=== PATIENT | male | born 1960 | race Caucasian/White ===

== ENCOUNTER → 2023-08-20 07:50 | Outpatient (REF) | payer BC, SELFPAY ==
--- NOTE | 2023-08-20 08:04 | CA_ITS ---
Acquisition Time: 2023-08-20 08:16:27 Total Exercise Time: 00:06:16 Test Indications: CP Medications: SEE H Protocol: KRISTAN Max HR: 157 BPM 100% of Pred: 157 BPM Max BP: 190/084 mmHG Max Work Load: 7.4 METS Exercise stress test exercise 6 min 16 sec of Kristan protocol achieving 101% MPHR, with mild SOB, no chest discomfort, without arrhythmias, with resting BP 124/82, max BP 190/84, with baseline abnormilities with no changes. Test reviewed with Dr. Ruth. Recommend echocardiogram and nuclear stress test. Referred By: WEST GALAN Overread By: Shawna Mckeon
== END ==
LOC: HO.CARD 07:50
PROVIDERS: Visit Provider Family Medicine
DX: R07.89 Other chest pain (principal)
CPT/HCPCS: 93017

== ENCOUNTER → 2023-08-20 08:04 | Outpatient (BNV) | payer BC, SELFPAY | PROVIDERS: Visit Provider Nurse Practitioner | DX: R06.02 Shortness of breath (principal); R07.89 Other chest pain | CPT/HCPCS: 93016; 93018 ==

== ENCOUNTER → 2023-09-16 07:56 | Outpatient (REF) | payer BC, SELFPAY ==
--- NOTE | 2023-09-16 08:02 | CA_ITS ---
Transthoracic Echocardiogram Patient (Last, First, Middle): Waldo Villagomez K Gender: Male Date of : 1960 Age: 63 Procedure Date: 09/16/2023 Procedure Type: Transthoracic Echocardiogram Location: OP Height: 187. cm Weight: 104.33 kg BSA: 2.30 m2 Heart Rate: 79 bpm BP: 155 / 90 mmHg Internal Controls Manager: ERNESTO Referring MD: Georges Thompson Symptoms: ABNORMAL OTHER CV TEST R94.39 Study Quality: Fair/w Contrast ECG Rhythm: Sinus Conclusions: - The left ventricular systolic function is normal. The visually estimated ejection fraction is between 65-70%. - No obvious valvular pathology seen on this study. Findings Procedure Information Contrast agent, definity, is being given per protocol without apparent complications. Left Ventricle Normal left ventricular cavity size. There is mildly increased left ventricular wall thickness. The left ventricular systolic function is normal. The visually estimated ejection fraction is between 65-70%. There is no evidence of regional wall motion abnormalities. Diastolic function is normal for age. Right Ventricle Normal right ventricular cavity size and systolic function. Atria Both atria are normal in size. Aortic Valve There is a normal trileaflet aortic valve. There is mild calcification of the aortic valve. There is no aortic valve stenosis. There is no aortic valve regurgitation. Mitral Valve The mitral valve appears normal. There is no mitral valve regurgitation. There is no mitral valve stenosis. Pulmonic Valve The pulmonic valve is likely normal. Tricuspid Valve Normal tricuspid valve structure. There is trace tricuspid valve regurgitation. There is no evidence of pulmonary hypertension. Great Vessels The asc aorta is normal in size. Venous The inferior vena cava is normal in size and collapses greater than 50% with inspiration. Pericardium/Pleural There is no evidence of pericardial effusion. Prior Study Comparison No prior study available for comparison. Recommendations, Care & Conclusions No obvious valvular pathology seen on this study. Measurements 2D Linear Measurements IVSd: 0.93 0.6-0.9/0.6-1.0 cm LVIDd: 4.04 3.9-5.3/4.2-5.9 cm LVIDd Index: 1.76 2.4-3.2/2.2-3.1 cm/m2 LVIDs: 2.20 2.0-3.6 cm LVPWd: 0.98 0.7-1.1 cm LA Diam: 3.40 2.7-3.8/3.0-4.0 cm LAIDs Index: 1.48 1.5-2.3 cm/m2 LV Mass: 150.27 67-162/88-224 g LV Mass Index: 65.34 43-95/49-115 g/m2 LVOT Diam: 2.20 3.0+(-)1.3 cm 2D Systolic Function EF 4C: 71.80 >55% EF 2C: 68.90 >55% EF BiP: 70.50 >55% Mitral Valve MV Pk E: 0.62 MV PK A: 0.65 MV Decel Time: 184.00 E/A: 1.00 E'Lateral: 9.57 E'Medial: 6.74 E/E' Med: 9.20 E/E' Lat: 6.50 PHT: 54.00 MVA PHT: 4.07 Decel [place]: 3.38 Aortic Valve AoV Pk Jacky: 1.43 AoV Mn Jacky: 1.02 AoV VTI: 0.27 AoV Pk Grad: 8.00 Aov Mn Grad: 5.00 JAIDEN Cont.VTI: 3.40 LVOT LVOT Pk Jacky: 1.31 LVOT Mn Jacky: 0.81 LVOT VTI: 0.24 LVOT Pk Grad: 7.00 LVOT Mn Grad: 3.00 LVOT Diam: 2.20 LVOT Area: 3.80 Diastolic Function MV Pk E: 0.62 MV Pk A: 0.65 E/A: 1.00 E'Medial: 6.74 E/E' Med: 9.20 E' Laterial: 9.57 E/E' Lat: 6.50 Right Ventricle TAPSE (mm): 22.00 TVS' Jacky: 11.30 Tricuspid Valve TR Pk Jacky: 1.23 TR Pk Grad: 6.00 RA Press: 3.00 RVSP: 9.00 Great Vessels Aorta Sinus of Valsalva: 3.30 2.0-3.5 cm Ao Asc: 2.90 2.1-3.4 cm Pulmonary Valve PV Pk Jacky: 1.14 Peak PV Grad: 5.00 Updated in Other Vendor System with Status of Final Dm Ruth MD electronically signed on 09/16/2023 11:59:55 AM with status of Final
== END ==
LOC: HO.CARD 07:56
PROVIDERS: Visit Provider Family Medicine
DX: R94.39 Abnormal result of other cardiovascular function study (principal)
CPT/HCPCS: 93306; Q9957

== ENCOUNTER → 2023-09-16 08:02 | Outpatient (BNV) | payer BC, SELFPAY | PROVIDERS: Visit Provider Internal Medicine | DX: R94.39 Abnormal result of other cardiovascular function study (principal); I35.8 Other nonrheumatic aortic valve disorders | CPT/HCPCS: 93306 ==

== ENCOUNTER 2024-07-08 08:50 | Outpatient (AMB) | payer BC, SELFPAY ==
--- NOTE | 2024-07-08 09:11 | A.OFFVIS_ITS ---
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 Accompanied by: Self / Same As Patient Results AMB Urinalysis, Automated UA Leukoctes 0 Fifi/uL Last Edit by Gbarielle Hughes CMA on 07/08/24 09:14 UA Nitrite Negative Last Edit by Gabrielle Hughes, HERBERT on 07/08/24 09:14 UA Urobilinogen 0.2 mg/dL Last Edit by Gabrielle Hughes, HERBERT on 07/08/24 09:1 4 UA Protein 0 mg/dL Last Edit by Gabrielle Hughes, LABOR RELATIONS SUPERVISOR on 07/08/24 09:14 UA pH 6.0 Last Edit by Gabrielle Hughes, LABOR RELATIONS SUPERVISOR on 07/08/24 09:14 UA Blood 0 Eric/uL Last Edit by Gabrielle Hughes, HERBERT on 07/08/24 09:14 UA Specific [place] 1.015 Last Edit by Gabrielle Hughes, HERBERT on 07/08/24 09: 14 UA Ketone Negative Last Edit by Gabrielle Hughes, HERBERT on 07/08/24 09:14 UA Bilirubin 0 mg/dL Last Edit by Gabrielle Hughes, LABOR RELATIONS SUPERVISOR on 07/08/24 09:14 UA Glucose 0 mg/dL Last Edit by Gabrielle Hughes, HERBERT on 07/08/24 09:14 Assessment & Plan Assessment & Plan Orders: Orders AMB Urinalysis Automated Today Z13.9 - Encounter for screening, unspecified Coding
--- NOTE | 2024-07-08 09:11 | MHC.OFFVIS ---
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 Accompanied by: Self / Same As Patient Results AMB Urinalysis, Automated UA Leukoctes 0 Fifi/uL Last Edit by Gabrielle Hughes, HERBERT on 07/08/24 09:14 UA Nitrite Negative Last Edit by Gabrielle Hughes, HEAD STOCK TRANSFER CLERK on 07/08/24 09:14 UA Urobilinogen 0.2 mg/dL Last Edit by Gabrielle Hughes, HERBERT on 07/08/24 09:14 UA Protein 0 mg/dL Last Edit by Gabrielle Hughes, HEAD STOCK TRANSFER CLERK on 07/08/24 09:14 UA pH 6.0 Last Edit by Gabrielle Hughes, HEAD STOCK TRANSFER CLERK on 07/08/24 09:14 UA Blood 0 Eric/uL Last Edit by Gabrielle Hughes, HEAD STOCK TRANSFER CLERK on 07/08/24 09:14 UA Specific [place] 1.015 Last Edit by Gabrielle Hughes, HERBERT on 07/08/24 09:14 UA Ketone Negative Last Edit by Gabrielle Hughes, HERBERT on 07/08/24 09:14 UA Bilirubin 0 mg/dL Last Edit by Gabrielle Hughes, HEAD STOCK TRANSFER CLERK on 07/08/24 09:14 UA Glucose 0 mg/dL Last Edit by Gabrielle Hughes, HEAD STOCK TRANSFER CLERK on 07/08/24 09:14 Assessment & Plan Assessment & Plan Orders: Orders AMB Urinalysis Automated Today Z13.9 - Encounter for screening, unspecified Coding
--- NOTE | 2024-07-08 09:14 | A.OFFVIS_ITS ---
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 pain Intake Note: New patient is present to establish care for Testicular pain Any Urology Medications: Sildenafil Antibiotic Allergy: None Blood Thinner: None Today PVR:162ml's Family History: Bladder Cancer? N0 Prostate Cancer? Father Patient Symptoms: Testicula pain, some discomfort after sex Hand Potter Required: No Accompanied by: Self / Same As Patient Allergies No Known Allergies Allergy (Verified 07/08/24 09:27) HPI Comments Details: Waldo is a 64 year old male who is here for evaluation, states he has noticed i ncreased size of testicles, mild discomfort after intercourse, denies any bothersome urinary symptoms. Exam notes scrotal swelling, possible hydrocele, will get scrotal US. Review of Systems Const All systems reviewed & are unremarkable except as noted in HPI and below Reports no additional complaints Eyes Reports no additional complaints ENT Reports no additional complaints Card Reports no additional complaints Resp Reports no additional complaints GI Reports no additional complaints Reports as per HPI Musc Reports no additional complaints Skin/Breast Reports system reviewed and no additional complaints, except as documented Neuro Reports no additional complaints Psych Reports no additional complaints Endo Reports no additional complaints Willy/Lymph Reports no additional complaints Aller/Immun Reports no additional complaints Physical Exam Const General: healthy appearing, no acute distress and well developed Orientation/consciousness: patient oriented x3 HEENT Head: Yes normocephalic and Yes atraumatic Eyes Conjunctivae: conjunctivae normal Neck Neck: Yes normal visual inspection Chest Chest palpation & inspection: normal inspection of the chest Resp Effort & Inspection: normal respiratory effort Cardio Rate: regular rate GI Inspection: Yes normal to inspection Palpation (GI): Soft to palpation Other: scrotal swelling, possible hydrocele, nontender Penis: normal penis and circumcised Neuro General: patient oriented x3 Extrem General: No pedal edema Psych Appearance: grossly normal Affect: normal affect Office Procedures Post Void Residual Post Residual Void Post Void Residual (PVR): 162 [id number] Void Residual by ultrasound Results AMB Urinalysis, Automated UA Leukoctes 0 Fifi/uL Last Edit by Gabrielle Hughes CMA on 07/08/24 09:14 UA Nitrite Negative Last Edit by Gabrielle Hughes CMA on 07/08/24 09:14 UA Urobilinogen 0.2 mg/dL Last Edit by Gabrielle Hughes CMA on 07/08/24 09:1 4 UA Protein 0 mg/dL Last Edit by Gabrielle Hughes, HERBERT on 07/08/24 09:14 UA pH 6.0 Last Edit by Gabrielle Hughes, HERBERT on 07/08/24 09:14 UA Blood 0 Eric/uL Last Edit by Gabrielle Hughes, HERBERT on 07/08/24 09:14 UA Specific [place] 1.015 Last Edit by Gabrielle Hughes, HERBERT on 07/08/24 09: 14 UA Ketone Negative Last Edit by Gabrielle Hughes, HERBERT on 07/08/24 09:14 UA Bilirubin 0 mg/dL Last Edit by Gabrielle Hughes, HERBERT on 07/08/24 09:14 UA Glucose 0 mg/dL Last Edit by Gabrielle Hughes, HERBERT on 07/08/24 09:14 Quality Reporting (2019) Benign Prostatic Hyperplasia ([facility] 771) AUA symptom score: 3 Quality of life due to urinary symptoms: If you were to spend the rest of your life with your urinary condition the way it is now, how would you feel about that?: Delighted Results Reviewed Results Reviewed: Laboratory Last Values Urine pH (Auto) 6.0 07/08/24 09:11 Specific [place] (Auto) 1.015 07/08/24 09:11 Urine Protein (Auto) 0 mg/dL 07/08/24 09:11 Glucose (UA)(Auto) 0 mg/dL 07/08/24 09:11 Urine Ketones (Auto) Negative 07/08/24 09:11 Urine Blood (Auto) 0 Eric/uL 07/08/24 09:11 Urine Nitrite (Auto) Negative 07/08/24 09:11 Urine Bilirubin (Auto) 0 mg/dL 07/08/24 09:11 Urine Urobilinogen (Auto) 0.2 mg/dL 07/08/24 09:11 Leukocyte Esterase (Auto) 0 Fifi/uL 07/08/24 09:11 Assessment & Plan Assessment & Plan (1) Scrotal swelling: Code(s): N50.89 - Other specified disorders of the male genital organs Category: Medical (2) Testicular pain: Code(s): N50.819 - Testicular pain, unspecified Category: Medical Plan US scrotum Orders: Orders US scrotum Today N50.89 - Other specified disorders of the male genital organs AMB Urinalysis Automated Today Z13.9 - Encounter for screening, unspecified AMB Post Void Residual by ultrasound Today N40.0 - Benign prostatic hyperplasia without lower urinary tract symptoms Patient Instructions: The patient had an opportunity to ask questions regarding treatment plan. The patient expressed understanding and agreement with the above treatment plan. The patient is aware they should contact our office by phone for worsening of their current condition or the appearance of new symptoms. Compliance is encouraged with any medications and followup testing that is ordered. It is a privilege to be allowed the opportunity to participate in the urologic care of your patient. If you have any questions or concerns regarding treatment for the above conditions please do not hesitate to contact me. The office telephone contact is [phone]. This note is constructed in part using voice recognition software. While every effort has been made to ensure accuracy hand potter errors may have been included. Yours sincerely, Jose Stevenson MD Coding Level of Care Code New Pt Level 4 (27558) Diagnoses Scrotal swelling N50.89 Testicular pain N50.819 CPT Codes Post Residual Void - PVR CPT Code: 13877-Xtnp Void Residual by ultrasound ([id number]) AUA Symptom Score AUA Incomplete emptying - It does not feel like I empty my bladder all the way.: 0 - Not at all Frequency - I have to go again less than two hours after I finish urinating.: 2 - Less than half the time Intermittency - I stop and start again several times when I urinate.: 0 - Not at all Urgency - It is hard to wait when I have to urinate.: 0 - Not at all Weak stream - I have a weak urinary stream.: 0 - Not at all Straining - I have to push or strain to begin urination.: 0 - Not at all Nocturia - I get up to urinate after I go to bed until the time I get up in the morning.: 1 time AUA Symptom Score: 3 Quality of life due to urinary symptoms: If you were to spend the rest of your life with your urinary condition the way it is now, how would you feel about that?: Delighted Source: [place] VALENTIN, Arthur PASCAL Jr, O'Tess MP, et al, and the Measurement Committee of the [employer]. The [employer] symptom index for benign prostatic hyperplasia. J Urol. 1992; 148: 6578-3039. Copyright 1992 [employer]
== END 2024-07-08 10:05 | disposition home or self-care (01) ==
PROVIDERS: PCP Family Medicine; Visit Provider Urology
DX: N50.89 Other specified disorders of the male genital organs (principal); N50.819 Testicular pain, unspecified; Z13.9 Encounter for screening, unspecified
CPT/HCPCS: 99204

== ENCOUNTER → 2024-07-08 08:50 | Outpatient (BNVA) | payer BC, SELFPAY | PROVIDERS: PCP Family Medicine; Visit Provider Urology | DX: N50.89 Other specified disorders of the male genital organs (principal); N50.819 Testicular pain, unspecified; N40.0 Benign prostatic hyperplasia without lower urinary tract symptoms | CPT/HCPCS: 51798; 81003 ==

== ENCOUNTER 2024-08-26 08:23 | Outpatient (REF) | payer BC, SELFPAY ==
--- NOTE | ~2024-08-26 | US_ITS ---
EXAMINATION: US SCROTUM HISTORY: N50.89 - scrotal swelling. COMPARISONS: There are no prior studies for comparison. FINDINGS: Real-time grayscale ultrasound imaging of the scrotum was performed. RIGHT TESTICLE: The right testis measures 4.8 x 1.8 x 3.4 cm and demonstrates normal homogeneous echotexture. There is a 4 x 7 x 2 mm testicular cyst. No solid mass is identified. The right testis demonstrates normal color Doppler flow. RIGHT EPIDIDYMIS: Normal in size, shape, and vascularity. LEFT TESTICLE: The left testis measures 3.3 x 1.4 x 3.7 cm and demonstrates normal homogeneous echotexture. There is a 1.6 x 0.5 x 0.9 cm testicular cyst. No solid mass is identified. The left testis demonstrates normal color Doppler flow. LEFT EPIDIDYMIS: Normal in size, shape, and vascularity. There is a 1.4 x 0.5 x 1.2 cm epididymal head cyst. VARICOCELE: None. HYDROCELE: There is a small to moderate-sized right hydrocele containing debris and septations. There is a large left hydrocele. OTHER COMMENTS: None. US/US scrotum IMPRESSION: Large left hydrocele. Small to moderate right hydrocele containing septations and debris. 1.4 x 0.5 x 1.2 cm left epididymal head cyst. Electronically signed by: Brian Jenkins MD 08/27/2024 11:54 AM [facility]
--- OUTSIDE RECORDS SUMMARY | 2024-08-26 08:48 | XMS_ITS | Data Portability ---
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 Plan of Treatment Reminders Order Date Submit Date Provider Last Modified By Organization Details Last Modified Time Details Appointments Physical 40 2024 10:40A M West Alfonso MD Not available Not available Not available Lab PSA, total, serum or plasma 2022 023 [employer] [facility], [address] [facility], [place], [address], 09/26/2023 10:08:01 PSA, serum or plasma 2022 023 [employer] [facility], [address] [facility], [place], [address], 10/15/2023 15:57:05 lipid panel, serum 2022 023 [employer] [facility], [address] [facility], [place], [address], 10/17/2023 10:54:14 CMP, serum or plasma 2022 023 [employer] [facility], [address] [facility], [place], [address], 10/14/2023 14:17:03 CMP, serum or plasma 2022 023 ANTOLIN [facility], [address] [facility], [place], [address], 09/26/2023 10:07:58 lipid panel, serum 2022 023 ANTOLIN [facility], [address] [place], [address], 09/26/2023 10:07:59 HbA1c (hemoglob in A1c), blood 2022 023 [facility], [address] [facility], [place], [address], 10/17/2023 10:54:14 HbA1c (hemoglob in A1c), blood 2022 023 [place] [address] [facility], [address] [facility], [place], [address], 09/17/2023 09:29:27 PSA, total, serum or plasma 2021 022 ANTOLIN [facility], [address], [address], [address], 06/06/2022 07:06:45 lipid panel, serum 2021 022 [facility]IN [facility], [address], [address], [address], 06/06/2022 07:06:44 CMP, serum or plasma 2021 022 AN[facility]IN [facility], [address], [place], [place], [address], 06/06/2022 07:06:43 HbA1c (hemoglob in A1c), blood 2021 022 ANTOLIN [facility], [address], [place], [place], [address], 06/06/2022 07:06:44 PSA, serum or plasma 2020 021 [employer], [place], [address] 06/01/2021 10:25:44 CMP, serum or plasma 2020 021 [email or web address] [facility], [address], [address], [place], [address], 10/10/2021 14:14:31 lipid panel, serum 2020 021 [employer] [facility], [address], [address], [place], [address], 10/11/2021 08:53:[address] referral 2022 023 [facility], [address] [place] [address], [address], 10/08/2023 10:37:48 orthopedi c surgeon referral 2022 023 gamaliel Shook MD, [address] [place], [address], 10/08/2023 10:37:46 gastroent erologist referral - tubular adenoma 2014 021 [facility], [address] [place] [address], [address], 03/12/2022 10:33:01 Procedures None recorded. Surgeries None recorded. Imaging electroca rdiogram 2022 023 [facility] In-Office Order, Internal Use Only DO Not Attach Compendium DO Not Attach Compendium, Do Not Delete/merge, [id number] 06/09/2023 11:29:36 exercise stress test 2022 023 [facility] (Imaging), [address] [place] [address], [place], [address], 08/21/2023 10:06:19 XR, knee, 3 view 2022 023 [facility] (Imaging), [address] [place], [address], 06/09/2023 08:23:04 XR, knee, 3 view 2021 [facility]Rad[facility]), [address] [place], [address], 07/17/2022 20:15:27 Medication Orders atorvasta tin 20 mg tablet [facility]23 [id number] [address] [place], [address], 06/09/2023 08:45:05 sildenafi l 50 mg tablet 2022 023 [facility] [address] [place], [address], 06/09/2023 08:42:55 atorvasta tin 20 mg tablet 2021 022 [facility], [address] [place], [address], 06/05/2022 08:30:40 sildenafi l 50 mg tablet 2021 022 [facility], [address] [place], [address], 06/05/2022 08:30:39 sildenafi l 50 mg tablet 2020 021 [id number], [address] [place] [address], [address], 06/01/2021 08:29:31 Patient TargetsNo targets recorded. Patient Instructions Encounter Date Encounter Id Patient Instructions Last Modified By Organization Details Last Modified Time 06/01/2021 [id number] nasal septum repair: before your surgery dlarrabee Not available 06/01/2021 08:32:45 When You Want to Lose Weight: Care Instructions dlarrabee Not available 06/01/2021 18:02:21 high cholesterol : care instructions dlarrabee Not available 06/01/2021 08:29:27 06/05/2022 [id number] influenza (flu) vaccine: care instructions dlarrabee Not available 06/05/2022 08:30:36 knee arthritis: care instructions dlarrabee Not available 06/05/2022 08:34:19 high cholesterol : care instructions dlarrabee Not available 06/05/2022 08:30:36 prediabetes: car e instructions dlarrabee Not available 06/05/2022 08:30:36 A healthy lifestyle: care instructions dlarrabee Not available 06/05/2022 08:30:36 body mass index: care instructions dlarrabee Not available 06/05/2022 08:30:36 learning about healthy weight dlarrabee Not available 06/05/2022 08:30:36 03/13/2023 [id number] knee arthritis: care instructions dlarrabee Not available 03/13/2023 09:11:06 A healthy lifestyle: care instructions dlarrabee Not available 03/13/2023 09:11:06 body mass index: care instructions dlarrabee Not available 03/13/2023 09:11:06 learning about healthy weight dlarrabee Not available 03/13/2023 09:11:06 04/04/2023 [id number] knee arthritis: care instructions dlarrabee Not available 04/04/2023 10:01:13 A healthy lifestyle: care instructions dlarrabee Not available 04/04/2023 10:01:13 body mass index: care instructions dlarrabee Not available 04/04/2023 10:01:13 learning about healthy weight dlarrabee Not available 04/04/2023 10:01:13 06/09/2023 [id number] knee arthritis: care instructions dlarrabee Not available 06/09/2023 08:42:52 hearing loss: care instructions dlarrabee Not available 06/09/2023 08:42:51 high cholesterol : care instructions dlarrabee Not available 06/09/2023 08:42:51 prediabetes: car e instructions dlarrabee Not available 06/09/2023 08:42:51 A healthy lifestyle: care instructions dlarrabee Not available 06/09/2023 08:42:52 body mass index: care instructions dlarrabee Not available 06/09/2023 08:42:51 learning about healthy weight dlarrabee Not available 06/09/2023 08:42:52 Reason for Referral [employer] Referral for Screening for malignant neoplasm of colon tubular adenoma 2014 Referring Physician: West Alfonso [facility], Encounter Date: 06/01/2021 Orthopedic Surgeon Referral for Osteoarthritis of knee Referring Physician: West Alfonso [facility], Encounter Date: 03/13/2023 Nurse Aide Referral for Dec reased hearing Referring Physician: West Alfonso [facility], Encounter Date: 06/09/2023 Results Created Date Observation Date Name Description Value Unit Range Abnormal Flag Note LastModifiedBy Organization Detail LastModifiedTime 10/20/19 22 10/19/2021 LIPID PANEL WITH REFLE X TO DIREC T LDL cholesterol, total 155 mg/dL <200 normal Not Available [facility] [address], [address], 10/19/2021 20:46:10 10/20/19 22 10/19/2021 LIPID PANEL WITH REFLE X TO DIREC T LDL HDL cholesterol 50 mg/dL > or = 40 normal Not Available [facility] [address], [address], 10/19/2021 20:46:10 10/20/19 22 10/19/2021 LIPID PANEL WITH REFLE X TO DIREC T LDL triglyceride s 116 mg/dL <150 normal Not Available [facility] [address], [address], 10/19/2021 20:46:10 10/20/19 22 10/19/2021 LIPID PANEL WITH REFLE X TO DIREC T LDL LDL-choleste rol 84 mg/dL _(marianna c) normal Refer ence range : <100 Rubi able range <100 mg/dL for prima ry preve ntion ; <70 mg/dL for patie nts with CHD or diabe tic patie nts with > or = 2 CHD risk facto rs. LDL-C is now calcu lated using the Cherie n-[facility] kins cindy browning n, which is a valid ated novel alfredo jaimes accur acy than the [employer] georg[employer] equat ion in the estim ation of LDL-C . Cherie parada SS et al. SCOTT. 2013; 310(1 9): 2061- 2068 (http ://ed ucati on.Qu estDi Mixwits. com/f aq/FA Q164) Not Available [facility] [place] [facility] [address], [place], [address], 10/19/2021 20:46:10 10/20/19 22 10/19/2021 LIPID PANEL WITH REFLE X TO DIREC T LDL chol/HDLC ratio 3.1 (calc ) <5.0 normal Not Available [facility] [place] [facility] [address], [place], [address], 10/19/2021 20:46:10 10/20/19 22 10/19/2021 LIPID PANEL WITH REFLE X TO DIREC T LDL non HDL cholesterol 105 mg/dL _(marianna c) <130 normal For patie nts with diabe emile plus 1 major ASCVD risk facto r, treat ing to a non-H DL-C goal of <100 mg/dL (LDL- C of <70 mg/dL ) is renee mott optio n. Not Available [facility] [place] [facility] [address], [place], [address], 10/19/2021 20:46:10 10/20/19 22 10/19/2021 LIPID PANEL WITH REFLE X TO DIREC T LDL copy(ies) sent to: [facility]UVIA [facility]ASQUEZ [facility] R [facility] N [address] [facility] [place] [address] Not Available [facility] [place] [facility] [address], [place], [address], 10/19/2021 20:46:10 10/20/19 22 10/19/2021 COMPR EHENS HAYLEY METAB OLIC PANEL glucose 115 mg/dL 65-99 high Fasti ng refer ence inter mili For someo ne witho ut known diabe emile, a gluco se value betwe en 100 and 125 mg/dL is consi stent with predi abete s and shoul d be confi rmed with a follo w-up test. Not Available [facility] [place] [facility] [address], [place], [address], 10/19/2021 20:46:11 10/20/19 22 10/19/2021 COMPR EHENS HAYLEY METAB OLIC PANEL urea nitrogen (BUN) 16 mg/dL 7-25 normal Not Available [facility] [place] [facility] [address], [place], [address], 10/19/2021 20:46:11 10/20/19 22 10/19/2021 COMPR EHENS HAYLEY METAB OLIC PANEL creatinine 0.95 mg/dL 0.70-1 .25 normal For patie nts >49 years of age, the refer ence limit for Creat inine is appro ximat kamla 13% highe r for peopl e ident ified as Afric an-Am rosi n. Not Available [facility] [address], [place], [address], 10/19/2021 20:46:11 10/20/19 22 10/19/2021 COMPR EHENS HAYLEY METAB OLIC PANEL eGFR non-afr. uruguayan 86 mL/mi n/1.7 3m2 > or = 60 normal Not Available [facility] [place] [facility] [address], [place], [address], 10/19/2021 20:46:11 10/20/19 22 10/19/2021 COMPR EHENS HAYLEY METAB OLIC PANEL eGFR 100 mL/mi n/1.7 3m2 > or = 60 normal Not Available [facility] [address], [place], [address], 10/19/2021 20:46:11 10/20/19 22 10/19/2021 COMPR EHENS HAYLEY METAB OLIC PANEL BUN/creatini ne ratio NOT APPLIC ABLE (calc ) 6-22 Not Available [facility] [address], [place], [address], 10/19/2021 20:46:11 10/20/19 22 10/19/2021 COMPR EHENS HAYLEY METAB OLIC PANEL sodium 139 mmol/ L 135-14 6 normal Not Available [facility] [address], [place], [address], 10/19/2021 20:46:11 10/20/19 22 10/19/2021 COMPR EHENS HAYLEY METAB OLIC PANEL potassium 4.7 mmol/ L 3.5-5. 3 normal Not Available [facility] [address], [place], [address], 10/19/2021 20:46:11 10/20/19 22 10/19/2021 COMPR EHENS HAYLEY METAB OLIC PANEL chloride 105 mmol/ L 98-110 normal Not Available [facility] [address], [place], [address], 10/19/2021 20:46:11 10/20/19 22 10/19/2021 COMPR EHENS HAYLEY METAB OLIC PANEL carbon dioxide 26 mmol/ L 20-32 normal Not Available [facility] [address], [place], [address], 10/19/2021 20:46:11 10/20/19 22 10/19/2021 COMPR EHENS HAYLEY METAB OLIC PANEL calcium 10.1 mg/dL 8.6-10 .[address] [facility] [place] [facility] [address], [place], [address], 10/19/2021 20:46:11 10/20/19 22 10/19/2021 COMPR EHENS HAYLEY METAB OLIC PANEL protein, total 7.8 g/dL 6.1-8. [address] [facility] [place] [facility] [address], [place], [address], 10/19/2021 20:46:11 10/20/19 22 10/19/2021 COMPR EHENS HAYLEY METAB OLIC PANEL albumin 4.7 g/dL 3.6-5. 1 normal Not Available [facility] [address], [place], [address], 10/19/2021 20:46:11 10/20/19 22 10/19/2021 COMPR EHENS HAYLEY METAB OLIC PANEL globulin 3.1 g/dL_ (calc ) 1.9-3. [address] [facility] [place] [facility] [address], [place], [address], 10/19/2021 20:46:11 10/20/19 22 10/19/2021 COMPR EHENS HAYLEY METAB OLIC PANEL albumin/glob ulin ratio 1.5 (calc ) 1.0-2. 5 normal Not Available [facility] [address], [place], [address], 10/19/2021 20:46:11 10/20/19 22 10/19/2021 COMPR EHENS HAYLEY METAB OLIC PANEL bilirubin, total 0.6 mg/dL 0.2-1. 2 normal Not Available [facility] [address], [place], [address], 10/19/2021 20:46:11 10/20/19 22 10/19/2021 COMPR EHENS HAYLEY METAB OLIC PANEL alkaline phosphatase 92 U/L 35-144 normal Not Available [facility] [address], [address], 10/19/2021 20:46:11 10/20/19 22 10/19/2021 COMPR EHENS HAYLEY METAB OLIC PANEL AST 29 U/L 10-35 normal Not Available [facility] [address], [address], 10/19/2021 20:46:11 10/20/19 22 10/19/2021 COMPR EHENS HAYLEY METAB OLIC PANEL ALT 43 U/L 9-46 normal Not Available [facility] [address], [address], 10/19/2021 20:46:11 10/20/19 22 10/19/2021 COMPR EHENS HAYLEY METAB OLIC PANEL copy(ies) sent to: [facility] N [address] [place] [address] [place] [phone] Not Available [facility] [address], [address], 10/19/2021 20:46:11 10/20/19 22 10/19/2021 PSA, TOTAL PSA, total 1.06 NG/mL < or = 4.00 normal The total PSA value from this assay syste m is stand ardiz ed again st the [facility] stand zina. The test resul t will be appro ximat kamla 20% lower when [place] red to the equim olar- stand ardiz ed total PSA ([place]onsales man Coult er). [place] rison of seria l PSA resul ts shoul d be inter prete d with this fact in mind. This test was perfo rmed using the Sieme ns chemi lumin escen t metho d. Value s obtai glenn from diffe rent assay metho ds canno t be used inter valerio geoffreyy . PSA level s, regar dless of value , shoul d not be inter prete d as absol [place] evide nce of the prese nce or absen ce of disea se. Not Available [facility] [place] [facility] [address], [place], [address], 10/19/2021 20:46:11 10/20/19 22 10/19/2021 PSA, TOTAL copy(ies) sent to: [facility] N [address] [facility] [address] Not Available [facility] [place] [facility] [address], [place], [address], 10/19/2021 20:46:11 06/05/20 22 06/05/2022 COMP. METAB OLIC PANEL (14) glucose 120 mg/dL 70-99 above high normal Not Available [facility] ([facility]) [address] [place], [address], 06/06/2022 07:06:43 06/05/20 22 06/05/2022 COMP. METAB OLIC PANEL (14) BUN 10 mg/dL 8-27 Not Available [facility] ([facility]) [address] [place], [address], 06/06/2022 07:06:43 06/05/20 22 06/05/2022 COMP. METAB OLIC PANEL (14) creatinine 0.88 mg/dL 0.76-1 .27 Not Available [facility] ([facility]) [address] [place], [address], 06/06/2022 07:06:43 06/05/20 22 06/05/2022 COMP. METAB OLIC PANEL (14) eGFR 97 mL/mi n/1.7 3 >59 Not Available [facility] ([facility]) [address] [place], [address], 06/06/2022 07:06:43 06/05/20 22 06/05/2022 COMP. METAB OLIC PANEL (14) BUN/creatini ne ratio 11 10-24 Not Available [facility] ([facility]) [address] [facility], [place], [address], 06/06/2022 07:06:43 06/05/20 22 06/05/2022 COMP. METAB OLIC PANEL (14) sodium 140 mmol/ L 134-14 4 Not Available [facility] ([facility]) [address] [facility], [place], [address], 06/06/2022 07:06:43 06/05/20 22 06/05/2022 COMP. METAB OLIC PANEL (14) potassium 5.2 mmol/ L 3.5-5. 2 Not Available [facility] ([facility]) [address] [facility], [place], [address], 06/06/2022 07:06:43 06/05/20 22 06/05/2022 COMP. METAB OLIC PANEL (14) chloride 101 mmol/ L 96-106 Not Available [facility] ([facility]) [address] [facility], [place], [address], 06/06/2022 07:06:43 06/05/20 22 06/05/2022 COMP. METAB OLIC PANEL (14) carbon dioxide, total 27 mmol/ L 20-29 Not Available [facility] ([facility]) [address] [place], [address], 06/06/2022 07:06:43 06/05/20 22 06/05/2022 COMP. METAB OLIC PANEL (14) calcium 9.7 mg/dL 8.6-10 .2 Not Available [facility] ([facility]) [address] [place], [address], 06/06/2022 07:06:43 06/05/20 22 06/05/2022 COMP. METAB OLIC PANEL (14) protein, total 7.8 g/dL 6.0-8. 5 Not Available [facility] ([facility]) [address] [place], [address], 06/06/2022 07:06:43 06/05/20 22 06/05/2022 COMP. METAB OLIC PANEL (14) albumin 4.8 g/dL 3.8-4. 8 Not Available [facility] ([facility]) [address] [place], [address], 06/06/2022 07:06:43 06/05/20 22 06/05/2022 COMP. METAB OLIC PANEL (14) globulin, total 3.0 g/dL 1.5-4. 5 Not Available [facility] ([facility]) [address] [place], [address], 06/06/2022 07:06:43 06/05/20 22 06/05/2022 COMP. METAB OLIC PANEL (14) A/G ratio 1.6 1.2-2. 2 Not Available [facility] ([facility]) [address] [place], [address], 06/06/2022 07:06:43 06/05/20 22 06/05/2022 COMP. METAB OLIC PANEL (14) bilirubin, total 0.6 mg/dL 0.0-1. 2 Not Available [facility] ([facility]) [address] [place], [address], 06/06/2022 07:06:43 06/05/20 22 06/05/2022 COMP. METAB OLIC PANEL (14) alkaline phosphatase 107 IU/L 44-121 Not Available [facility] ([facility]) [address] [place], [address], 06/06/2022 07:06:43 06/05/20 22 06/05/2022 COMP. METAB OLIC PANEL (14) AST (SGOT) 34 IU/L 0-40 Not Available [facility] ([facility]) [address] [facility], [place], [address], 06/06/2022 07:06:43 06/05/20 22 06/05/2022 COMP. METAB OLIC PANEL (14) ALT (SGPT) 59 IU/L 0-44 above high normal Not Available [facility] ([facility]) [address] [facility], [place], [address], 06/06/2022 07:06:43 06/05/20 22 06/05/2022 LIPID PANEL cholesterol, total 169 mg/dL 100-19 9 Not Available [facility] ([facility]) [address] [facility] [place], [address], 06/06/2022 07:06:44 06/05/20 22 06/05/2022 LIPID PANEL triglyceride s 139 mg/dL 0-149 Not Available [facility] ([facility]) [address] [place], [address], 06/06/2022 07:06:44 06/05/20 22 06/05/2022 LIPID PANEL HDL cholesterol 52 mg/dL >39 Not Available [facility] ([facility]) [address] [facility], [place], [address], 06/06/2022 07:06:44 06/05/20 22 06/05/2022 LIPID PANEL VLDL cholesterol marianna 24 mg/dL 5-40 Not Available [facility] ([facility]) [address] [place], [address], 06/06/2022 07:06:44 06/05/20 22 06/05/2022 LIPID PANEL LDL chol calc ([facility]) 93 mg/dL 0-99 Not Available [facility] (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) [address] [facility], [place], [address], 06/06/2022 07:06:44 06/05/20 22 06/06/2022 HEMOG LOBIN A1C hemoglobin A1C 5.8 % 4.8-5. 6 above high normal Predi abete s: 5.7 - 6.4 Diabe emile: >6.4 Glyce tiffanie contr ol for adult s with diabe emile: <7.0 Not Available [facility] ([facility]) [address] [facility], [place], [address], 06/06/2022 07:06:44 06/05/2006/05/2022 PROST ATE-S PECIF IC AG prostate specific Ag 0.6 NG/mL 0.0-4. 0 Joyce ECLIA metho dolog y. Accor ding to the Ameri can Urolo gical Assoc iatio n, Serum PSA shoul d decre ase and remai n at undet ectab le level s after radic al prost atect raffi. The AUA defin es bioch emica l recur rence as an initi al PSA value 0.2 ng/mL or great er follo wed by a subse quent confi rmato ry PSA value 0.2 ng/mL or great er. Value s obtai glenn with diffe rent assay metho ds or kits canno t be used inter valerio vishal . Resul ts canno t be inter prete d as absol [place] evide nce of the prese nce or absen ce of abner romano se. Not Available [facility] ([facility]) [address] [facility], [place], [address], 06/06/2022 07:06:45 09/25/19 24 09/26/2023 COMP. METAB OLIC PANEL (14) glucose 110 mg/dL 70-99 above high normal Not Available [facility] ([facility]) [address] [facility], [place], [address], 09/26/2023 10:07:58 09/25/19 24 09/26/2023 COMP. METAB OLIC PANEL (14) BUN 16 mg/dL 8-27 Not Available [facility] ([facility]) [address] [facility], [place], [address], 09/26/2023 10:07:58 09/25/19 24 09/26/2023 COMP. METAB OLIC PANEL (14) creatinine 0.82 mg/dL 0.76-1 .27 Not Available [facility] ([facility]) [address] [facility], [place], [address], 09/26/2023 10:07:58 09/25/19 24 09/26/2023 COMP. METAB OLIC PANEL (14) eGFR 99 mL/mi n/1.7 3 >59 Not Available [facility] ([facility]) [address] [facility], [place], [address], 09/26/2023 10:07:58 09/25/19 24 09/26/2023 COMP. METAB OLIC PANEL (14) BUN/creatini ne ratio 20 10-24 Not Available [facility] ([facility]) [address] [facility], [place], [address], 09/26/2023 10:07:58 09/25/19 24 09/26/2023 COMP. METAB OLIC PANEL (14) sodium 142 mmol/ L 134-14 4 Not Available [facility] ([facility]) [address] [facility], [place], [address], 09/26/2023 10:07:58 09/25/19 24 09/26/2023 COMP. METAB OLIC PANEL (14) potassium 5.0 mmol/ L 3.5-5. 2 Not Available [facility] ([facility]) [address] [facility], [place], [address], 09/26/2023 10:07:58 09/25/19 24 09/26/2023 COMP. METAB OLIC PANEL (14) chloride 102 mmol/ L 96-106 Not Available [facility] ([facility]) [address], [place], [address], 09/26/2023 10:07:58 09/25/19 24 09/26/2023 COMP. METAB OLIC PANEL (14) carbon dioxide, total 23 mmol/ L 20-29 Not Available [facility] ([facility]) [address], [place], [address], 09/26/2023 10:07:58 09/25/19 24 09/26/2023 COMP. METAB OLIC PANEL (14) calcium 10.2 mg/dL 8.6-10 .2 Not Available [facility] ([facility]) [address], [place], [address], 09/26/2023 10:07:58 09/25/19 24 09/26/2023 COMP. METAB OLIC PANEL (14) protein, total 7.8 g/dL 6.0-8. 5 Not Available [facility] ([facility]) [address] [place], [address], 09/26/2023 10:07:58 09/25/19 24 09/26/2023 COMP. METAB OLIC PANEL (14) albumin 4.9 g/dL 3.9-4. 9 Not Available [facility] ([facility]) [address] [place], [address], 09/26/2023 10:07:58 09/25/19 24 09/26/2023 COMP. METAB OLIC PANEL (14) globulin, total 2.9 g/dL 1.5-4. 5 Not Available [facility] ([facility]) [address] [place], [address], 09/26/2023 10:07:58 09/25/19 24 09/26/2023 COMP. METAB OLIC PANEL (14) A/G ratio 1.7 1.2-2. 2 Not Available [facility] ([facility]) [address] [facility] [place], [address], 09/26/2023 10:07:58 09/25/19 24 09/26/2023 COMP. METAB OLIC PANEL (14) bilirubin, total 0.6 mg/dL 0.0-1. 2 Not Available [facility] ([facility]) [address] [facility] [place], [address], 09/26/2023 10:07:58 09/25/19 24 09/26/2023 COMP. METAB OLIC PANEL (14) alkaline phosphatase 100 IU/L 44-121 Not Available [facility] ([facility]) [address] [facility], [place], [address], 09/26/2023 10:07:58 09/25/19 24 09/26/2023 COMP. METAB OLIC PANEL (14) AST (SGOT) 36 IU/L 0-40 Not Available [facility] ([facility]) [address] [facility], [place], [address], 09/26/2023 10:07:58 09/25/19 24 09/26/2023 COMP. METAB OLIC PANEL (14) ALT (SGPT) 53 IU/L 0-44 above high normal Not Available [facility] ([facility]) [address] [facility], [place], [address], 09/26/2023 10:07:58 09/25/19 24 09/26/2023 LIPID PANEL cholesterol, total 177 mg/dL 100-19 9 Not Available [facility] ([facility]) [address] [facility], [place], [address], 09/26/2023 10:07:59 09/25/19 24 09/26/2023 LIPID PANEL triglyceride s 221 mg/dL 0-149 above high normal Not Available [facility] ([facility]) [address] [facility] [place], [address], 09/26/2023 10:07:59 09/25/19 24 09/26/2023 LIPID PANEL HDL cholesterol 53 mg/dL >39 Not Available [facility] ([facility]) [address] [place], [address], 09/26/2023 10:07:59 09/25/19 24 09/26/2023 LIPID PANEL VLDL cholesterol marianna 37 mg/dL 5-40 Not Available [facility] ([facility]) [address] [place], [address], 09/26/2023 10:07:59 09/25/19 24 09/26/2023 LIPID PANEL LDL chol calc ([facility]) 87 mg/dL 0-99 Not Available [facility] (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) [address] [place], [address], 09/26/2023 10:07:59 09/25/19 24 09/26/2023 HEMOG LOBIN A1C hemoglobin A1C 5.7 % 4.8-5. 6 above high normal Predi abete s: 5.7 - 6.4 Diabe emile: >6.4 Glyce tiffanie contr ol for adult s with diabe emile: <7.0 Not Available [facility] ([facility]) [address] [place], [address], 09/26/2023 10:08:00 09/25/19 24 09/26/2023 PROST ATE-S PECIF IC AG prostate specific Ag 0.5 NG/mL 0.0-4. 0 Joyce ECLIA metho dolog y. Accor ding to the Ameri can Urolo gical Assoc iatio n, Serum PSA shoul d decre ase and remai n at undet ectab le level s after radic al prost atect raffi. The AUA defin es bioch emica l recur rence as an initi al PSA value 0.2 ng/mL or great er follo wed by a subse quent confi rmato ry PSA value 0.2 ng/mL or great er. Value s obtai glenn with diffe rent assay metho ds or kits canno t be used inter valerio vishal . Resul ts canno t be inter prete d as absol [place] evide nce of the prese nce or absen ce of abner ku disejasmyne se. Not Available [facility] ([facility]) [address] [facility], [place], [address], 09/26/2023 10:08:00 06/09/20 23 elect rocar diogr am No observ ation record ed. dlarrabee In-Office Order Internal Use Only DO Not Attach Compendium DO Not Attach Compendium, Do Not Delete/merge, [id number] 06/09/2023 08:35:18 06/10/20 23 06/09/2023 elect rocar diogr am No observ ation record ed. BARCODE In-Office Order Internal Use Only DO Not Attach Compendium DO Not Attach Compendium, Do Not Delete/merge, [id number] 06/10/2023 15:23:22 08/21/19 24 08/18/2023 exerc ise stres s test No observ ation record ed. [facility] (Medical Records) [address] [place], [address], 08/26/2023 11:24:41 11/07/19 24 09/16/2023 US, echoc ardio gram, trans thora cic, compl ete, w/ color flow No observ ation record ed. [facility] [address] [place], [address], 11/07/2023 16:23:11 Result Notes None recorded. Problems Name Problem SNOMED Code Status Onset Date Resolution Date Notes Provider Name and Address Organization Details Recorded Time [facility] [id number] Active 2019 West Alfonso MD [address] [place] [address], [phone] , [place] [facility] [employer] [facility] 2 16:27:44 Primary erectile dysfunction 094657821 Active 2019 West Alfonso MD [address] [place] [address], [phone], [facility] [employer] 2 16:27:44 Problem Notes None recorded. Procedures Surgical History Date Name Laterality Status Provider Name and Address Organization Details Recorded Time 3 Intra-articular Knee Steroid Injection completed West Alfonso MD [address] [place] [address], [phone], [facility] [employer] 04/04/2023 12:59:57 8 I&D completed West Alfonso MD [address] [place] [address], [phone], [facility] [employer] 05/11/2018 23:13:35 8 Cerumen Removal completed West Alfonso MD [address] [place] [address], [phone], [facility] [employer] 12/18/2017 14:32:49 8 Cryotherapy completed West Alfonso MD [address] [place] [address], [phone], [facility] [employer] [facility]. 12/18/2017 14:32:41 Imaging Results Imaging Date Name Status LastModified by Organization Details LastModified Time 06/09/2023 electrocardiogram completed dlarrabee In-Offi ce Order Internal Use Only DO Not Attach Compendium DO Not Attach Compendium, Do Not Delete/merge, [id number] 06/09/2023 08:35:18 06/09/2023 electrocardiogram completed BARCODE In-Offi ce Order Internal Use Only DO Not Attach Compendium DO Not Attach Compendium, Do Not Delete/merge, [id number] 06/10/2023 15:23:22 08/18/2023 exercise stress test completed [facility] (Medical Records) [address] [place], [address], 08/26/2023 11:24:41 09/16/2023 US, echocardiogram, transthoracic, complete, w/ color flow completed dlarrabee [facility] [address] [facility], [place], [address], 11/07/2023 16:23:11 Procedure Notes None recorded. Medical Equipment None Reported. Allergies No known drug allergies Medications Name Sig Start Date Stop Date Status Note LastModified by Organization Details LastModified Time atorvastati n 20 mg tablet TAKE 1 TABLET BY MOUTH EVERY DAY 2023 active Not Available Not Available Not Avai lable sildenafil 50 mg tablet TAKE 1 TABLET BY MOUTH EVERY DAY 2024 active Not Available Not Available Not Avai lable amoxicillin 875 mg tablet TAKE 1 TABLET TWICE DAILY UNTIL FINISHED STARTING 1 DAY BEFORE SURGERY active Not Available Not Available No t Available erythromyci n 5 mg/gram (0.5 %) eye ointment APPLY TO THE EYE 4 TIMES A DAY FOR 7 DAYS 03/13 completed Not Available Not Available Not Available aspirin 81 mg chewable tablet Chew 1 tablet every day by oral route. 06/05 completed Not Available Not Available Not Available ibuprofen 600 mg tablet TAKE 1 TABLET 4 TIMES DAILY TAKEN WITH TYLENOL. START 1 DAY BEFORE SURSGERY 06/09 completed Not Available Not Available Not Available naproxen 500 mg tablet TAKE 1 TABLET BY MOUTH TWICE A DAY WITH FOOD active Not Available Not Available No t Available oxycodone 5 mg tablet DIRECTED 1-2 TABLETS EVERY 6 HOURS NEEDED PAIN DO NOT DRIVE WHILE TAKING THIS MEDICATIO N 06/09 completed Not Available Not Available Not Available chlorhexidi ne gluconate 0.12 % mouthwash RINSE WITH 1/2 OZ TWICE A DAY AFTER BREAKFAST AND BEFORE BEDTIME. SPIT OUT active Not Available Not Available No t Available Vitamin D 5,000 unit tablet Take by oral route. active Not Available Not Available No t Available GaviLyte-G 236 gram-22.74 gram-6.74 gram-5.86 gram oral solution USE DIRECTED 06/05 completed Not Available Not Available Not Available red yeast rice 05/31 completed Not Available Not Available Not Available omega 3 350 mg-dha 235 mg-epa 90 mg-fish oil 597 mg capsule,del ay rel Take by oral route. active Not Available Not Available No t Available Flublok Quad (PF) 180 mcg (45 mcg x 4)/0.5 mL IM syringe PHARMACY ADMINISTE RED 05/31 completed Not Available Not Available Not Available Vitals Date Recorded Body height Body mass index (BMI) Body weight Pain severity - 0-10 verbal numeric rating [Score] - Reported Body temperature Oxygen saturation Oxygen saturation in Arterial blood by Pulse oximetry Heart rate Systolic blood pressure Diastolic blood pressure Provider Name and Address Organization Details Last Updated DateTime 1 185.42 cm 30.6 kg/m2 863364. 43 g 0 97.4 [degF] 97 % 97 % 90 /min 118 mm[Hg] 80 mm[Hg] Denise Oquendo [facility] 1 08:10:39 Date Recorded Body height Body mass index (BMI) Body weight Body temperature Heart rate Respiratory rate Oxygen saturation Oxygen saturation in Arterial blood by Pulse oximetry Pain severity - 0-10 verbal numeric rating [Score] - Reported Systolic blood pressure Diastolic blood pressure Provider Name and Address Organization Details Last Updated DateTime 2 185.42 cm 32.7 kg/m2 648290. 61 g 98 [degF] 93 /min 14 /min 98 % 98 % 1 126 mm[Hg] 74 mm[Hg] Amy Breaux [email or web address] [employer] [facility] 2 08:11:21 Date Recorded Body height Body mass index (BMI) Body weight Pain severity - 0-10 verbal numeric rating [Score] - Reported Respiratory rate Body temperature Heart rate Oxygen saturation Oxygen saturation in Arterial blood by Pulse oximetry Systolic blood pressure Diastolic blood pressure Provider Name and Address Organization Details Last Updated DateTime 3 185.42 cm 30.5 kg/m2 173458. 54 g 2 14 /min 97.1 [degF] 102 /min 98 % 98 % 126 mm[Hg] 80 mm[Hg] Amy Breaux [email or web address] [employer] [facility] 3 09:01:02 Date Recorded Body height Body mass index (BMI) Body weight Heart rate Respiratory rate Oxygen saturation Oxygen saturation in Arterial blood by Pulse oximetry Pain severity - 0-10 verbal numeric rating [Score] - Reported Body temperature Systolic blood pressure Diastolic blood pressure Provider Name and Address Organization Details Last Updated DateTime 3 185.42 cm 30.9 kg/m2 469361. 41 g 89 /min 14 /min 98 % 98 % 3 97.6 [degF] 124 mm[Hg] 78 mm[Hg] Amy Breaux [facility] 3 09:38:09 Date Recorded Body height Respiratory rate Body mass index (BMI) Body weight Body temperature Pain severity - 0-10 verbal numeric rating [Score] - Reported Heart rate Oxygen saturation Oxygen saturation in Arterial blood by Pulse oximetry Systolic blood pressure Diastolic blood pressure Provider Name and Address Organization Details Last Updated DateTime 3 185.42 cm 14 /min 31.2 kg/m2 951350. 2 g 97.1 [degF] 2 102 /min 98 % 98 % 118 mm[Hg] 68 mm[Hg] Amy Breaux [facility] 3 08:20:43 Social History Question Answer Notes LastModified by Organizat ion Details LastModified Time Tobacco Smoking Status Never Smoker Densie mcknight [facility] 06/01/2021 08:08:45 Do You Have An Advance Directive? No Information not available 12/18/2017 What Is Your Level Of Alcohol Consumption? Moderate Information not available 12/18/2017 Animal Exposure? Yes 2 Cats Informat ion not available 06/09/2023 Are You Blind Or Do You Have Difficulty Seeing? No Information not available 05/31/2020 Is Blood Transfusion Acceptable In An Emergency? Yes Information not available 05/31/2020 What Is Your Level Of Caffeine Consumption? Moderate Information not available 12/18/2017 How Much Tobacco Do You Chew? None Information not available 03/13/2023 Are You Currently Employed? Yes Information not available 06/01/2021 Are You Deaf Or Do You Have Serious Difficulty Hearing? No Information not available 05/31/2020 What Type Of Diet Are You Following? REGULAR Information not available 12/18/2017 Do You Or Have You Ever Used E-cigarettes Or Vape? 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 10 Information not available 06/09/2023 Which Of Your Hands Is Dominant? Right Information not available 05/31/2020 Live Alone Or With Others? With Others Information not available 06/09/2023 Date Of Last Colonoscopy 2015 [place] Information not available 06/01/2021 Date Of Last Bone Density Scan Never Information not available 12/18/2017 Date Of Last PSA 2yrs Ago [employer] Informat ion not available 12/18/2017 Sexual Orientation Heterosexual Information not available 12/18/2017 Do You Have A Health Care Proxy? No Information not available 12/18/2017 Have You Fallen Within The Last 12 Months No Information not available 12/18/2017 How Many Falls Have You Had Within The Last 12 Months? 0 Information not available 12/18/2017 Have You [place] Down, Depressed, Or Hopeless In The Last 2 Weeks? No Information not available 12/18/2017 Do You Have Little Interest Or Pleasure In Doing Things? No Information not available 12/18/2017 Does The Patient Have Fever OR Cough OR Shortness Of Breath? No Information not available 05/31/2020 In The Last 14 Days, Has The Patient Had Contact With A COVID-19 Positive Patient Or A COVID-19 Suspect Patient Awaiting Test Results? No Information not available 05/31/2020 If Pulse Oximetry Was Done: Is The Patient's Sp02 Less Than 93% On Room Air? No Information not available 05/31/2020 Does The Patient Have At Least TWO Of These Symptoms? Diarrhea, Chills, Muscle Pain, Repeated Shaking & Chills, Headache, Sore Throat, Or New Loss Of Taste/Smell No Information not available 05/31/2020 Have You Ever Engaged In Any Behavior That Put You At Risk For Cece AIDS? No Information not available 12/18/2017 Are You In A Relationship In Which You Have Been Physically Hurt By Your Partner? No Information not available 12/18/2017 How Often Do You Use Sunscreen Always Information not available 12/18/2017 Firearms Present In Home No Information not available 12/18/2017 How Often Do You Wear A Seatbelt Always Information not available 12/18/2017 Do You Ever Feel Afraid Of Your Partner? No Information not available 12/18/2017 When Is The Last Time You Had 4+ Alcoholic Drinks In The Same Sitting 1 Week Information not available 12/18/2017 Illicit Or Recreational Drugs No Information not available 12/18/2017 Do You Take Daily Aspirin Yes Information not available 12/18/2017 Marital Status Informatio n not available 06/09/2023 What Was The Date Of Your Most Recent Tobacco Screening? 06/09/2023 Information not available 06/09/2023 How Many Children Do You Have? 2 Information not available 06/09/2023 Have You Ever Been Counseled For Unhealthy Alcohol Use? No Information not available 06/09/2023 Do You Have Any Pets? Yes Information not available 06/01/2021 What Is Your Relationship Status? Information not available 06/01/2021 Are You Sexually Active? Yes Information not available 06/09/2023 Number Of Sexual Partners 1 Information not available 06/09/2023 Smoke Alarm In Home Yes Information not available 06/09/2023 Do You Or Have You Ever Used Smokeless Tobacco? Never Used Smokeless Tobacco Information not available 03/13/2023 General Stress Level Medium Med-High Information not available 06/09/2023 Do You Feel Stressed (tense, Restless, Nervous, Or Anxious, Or Unable To Sleep At Night)? [id number] Information not available 06/09/2023 Do You Use Any Illicit Or Recreational Drugs? No Information not available 06/01/2021 Do You Or Have You Ever Used Any Other Forms Of Tobacco Or Nicotine? No Information not available 06/01/2021 How Many Days In The Past Year Have You Consumed 5 Or More Drinks? 30 Information not available 06/05/2022 Sex: Male Functional Status Question Answer Note LastModified by Organizat ion Details LastModified Time Urinary incontinence assessment performed? Yes Information not available 06/09/2023 Are you able to care for yourself? Yes Information n ot available 05/31/2020 What is your exercise level? Occasional Information not available 12/18/2017 Mental Status None recorded. Family History Relationship Description Onset Age of this Age Resolved Age Notes LastModified by Organization Details LastModified Time Mother Kidney disease chimmer Not available 2017 08:11:15 Mother Hypertensive disorder chimmer Not available 2020 08:04:30 Mother Asthma chimmer Not available 08:04:30 Mother Hyperlipidem ia chimmer Not available 2020 08:04:30 Father Congestive heart failure [email or web address] Not available 2022 08:07:39 Father Heart disease chimmer Not available 2020 08:04:30 Father Myocardial infarction chimmer Not available 06/01 08:04:30 Father Hyperlipidem ia chimmer Not available 2020 08:04:30 Father Family history of malignant neoplasm chimmer Not available 2020 08:04:30 Father Hypertensive disorder chimmer Not available 2020 08:04:30 Father Malignant tumor of prostate [email or web address] Not available 2022 08:07:39 Sister Obesity [email or web address] Not available 08:07:39 Sister Hyperlipidem ia chimmer Not available 2020 08:04:30 Sister Diabetes mellitus [email or web address] Not available 2021 07:56:48 Paternal Uncle Diabetes mellitus [email or web address] Not available 2022 08:07:39 Maternal Grandmother Family history of malignant neoplasm chimmer Not available 2020 08:04:30 Unspecified Relation Kidney disease chimmer Not available 2020 08:04:30 Maternal Grandfather Myocardial infarction chimmer Not available 06/01 08:04:30 Maternal Grandfather Heart disease chimmer Not available 2020 08:04:30 Medical History Condition Response HIV or AIDS N Osteoarthritis N Kidney Stones N Hyperthyroidism N Heart Arrhythmia N Deep Vein Thrombophlebitis N Depression N Hypothyroidism N High Cholesterol (Hyperlipidemia) Y Anemia N CHF (Congestive Heart Failure) N Pulmonary Embolism (Blood Clot in the Talya ng) N Peripheral Vascular Disease (PVD) N Bleeding Disorder/DVT N Obstructive Sleep Apnea N Anxiety Disorder N Diabetes N Osteopenia/Osteoporosis N Heart Attack (Myocardial Infarction) N Tuberculosis N Cancer N Asthma N Diverticulitis (Inflammation of the raul l) N ADHD N COPD (Chronic Obstructive Pulmonary Dise ase) N Stroke/TIA N Hypercholesterolemia N Aortic Aneurysm N GERD/Reflux N Hepatitis N Other Disease(s): N Organ Transplant N Fibromyalgia N CAD (Coronary Artery Disease) N Immunizations Vaccine Type Date Status Note Provider Nam e and Address Organization Details Recorded Time Influenza, split virus, quadrivalent, PF 2 completed West Alfonso MD [address] [place] [address], [phone], [facility] 06/05/2022 14:13:10 COVID-19, mRNA, LNP-S, PF, 100 mcg/0.5mL dose or 50 mcg/0.25mL dose 1 completed Amy mcknight [facility] 06/05/2022 08:12:35 Influenza, split virus, quadrivalent, preservative 1 completed Denise mcknight [facility] 06/01/2021 08:09:27 COVID-19, mRNA, LNP-S, PF, 100 mcg/0.5mL dose or 50 mcg/0.25mL dose 2 completed Amy mcknight [facility] 06/05/2022 08:12:35 COVID-19, mRNA, LNP-S, PF, 100 mcg/0.5mL dose or 50 mcg/0.25mL dose 1 completed Amy mcknight [facility] 06/05/2022 08:12:35 Influenza, MDCK, quadrivalent, PF 9 completed Amy mcknight [facility] 06/05/2022 08:12:35 Influenza, recombinant, quadrivalent, PF 0 completed Amy mcknight [facility] 06/05/2022 08:12:35 Tdap 0 completed Amy mcknight [facility] 06/05/2022 08:12:35 COVID-19, mRNA, LNP-S, PF, 100 mcg/0.5mL dose or 50 mcg/0.25mL dose 1 completed Amy mcknight [facility] 06/05/2022 08:12:35 COVID-19, mRNA, LNP-S, bivalent, PF, 50 mcg/0.5 mL or 25mcg/0.25 mL dose 2 completed Amy mcknight [facility] 04/04/2023 09:36:26 zoster recombinant 3 completed Amy mcknight [facility] 04/04/2023 09:36:25 Influenza, MDCK, quadrivalent, PF 3 completed Amy mcknight [facility] 06/09/2023 08:21:06 COVID-19, mRNA, LNP-S, PF, 50 mcg/0.5 mL 3 completed Amy mcknight [facility] 06/09/2023 08:21:06 Past Encounters Encounter ID Performer Location Encounter Start Date Encounter Closed Date Diagnosis/Indication Diagnosis SNOMED-CT Code Diagnosis ICD10 Code Diagnosis Note [id number] MD JAH Paz[address] [address] 12/18/2017 08:02:16 12/18/2017 08:54:26 Adult health examination 238420116 Z00.00 Continue exercise, weight loss. Discussed marijuana for stress, doubt very beneficial . Counsellin g if desired. Sleep apnea 00708296 G47 .30 Hyperlipid emia screening 992913209 Z13.220 Varicose v eins of lower extremity 73735881 I83.93 compressio n stockings prn Inflamed s eborrheic keratosis 905438749 L82.0 N2 cryo x 2 lesions Impacted cerumen 3482786 6 H61.21 irrigated with success [id number] MD JAH Paz_[facility] [address] [place] [address] 05/11/2018 12:47:49 05/11/2018 13:50:52 Epidermoid cyst 836466786 L72.0 I+D as above, suture removal in 10-14 days [id number] West Alfonso MD [facility] [place] [address] 05/25/2018 08:00:50 05/25/2018 08:28:34 Removal of suture 16134527 Z48.02 sutures out x 2, tolerated well Primary er ectile dysfunction 868426817 N52.9 Exercise, get sleep study, healthy diet. Labs reviewed, all OK except somewhat high cholestero l [id number] West Alfonso [facility] [place] [address] 05/26/2019 07:59:59 05/26/2019 08:41:56 Administration of influenza vaccine 17742020 Z23 Adult heal th examination 050161505 Z00.00 Continue exercise, weight loss. Sleep apnea 35590469 G47 .30 possible ALOK, recommend sleep study Hyperlipid emia screening 936670649 Z13.935 [id number] MD Janusz Paz j[facility] [place] [address] 05/31/2020 08:03:21 05/31/2020 08:44:20 Adult health examination 087544001 Z00.00 Continue exercise, weight loss. Sleep apnea 77969570 G47 .30 possible ALOK, recommend sleep study Hyperlipidemia 02829487 E78.5 be careful about alcohol in light of atorvastat in Family his tory of malignant neoplasm of prostate 613363277 Z80.42 Active or passive immunization 661408796 Z23 Primary er ectile dysfunction 521781391 N52.9 [id number] West Alfonso MD [facility] [place] [address] 06/01/2021 08:03:31 06/01/2021 08:35:22 Adult health examination 414981315 Z00.00 Hyperlipidemia 83650923 E78.5 Family his tory of malignant neoplasm of prostate 140637487 Z80.42 Primary er ectile dysfunction 221540394 N52.9 Screening for malignant neoplasm of colon 318691768 Z12.11 due for repeat colonoscop y, had tubular adenoma 2015 Deviated nasal septum 12 1195032 J34.2 Obesity 480017251 E66.9 [id number] West Alfonso MD [facility] [address] [place] [address] 06/05/2022 07:53:11 06/05/2022 08:37:21 Body mass index 30+ - obesity 155464046 Z68.32 Adult heal th examination 110043954 Z00.00 Hyperlipidemia 95801943 E78.5 Family his tory of malignant neoplasm of prostate 656752532 Z80.42 Primary er ectile dysfunction 699319301 N52.9 Administra tion of influenza vaccine 52058995 Z23 Family his tory of coronary arteriosclerosis 264410558 Z82.49 left prior to getting EKG Impaired f asting glycemia 712333212 R73.01 Osteoarthr itis of knee 857900999 M17.9 not ready for TKA, will consider steroid injection; tylenol prn [id number] West Alfonso MD [address] [address] 03/13/2023 08:42:21 03/13/2023 10:42:57 Body mass index 30+ - obesity 014553671 Z68.30 good job losing weight Osteoarthr itis of knee 592281414 M17.9 considerin g TKA; continue tylenol prn [id number] West Alfonso MD [address] [address] 04/04/2023 09:08:09 04/04/2023 13:26:30 Body mass index 30+ - obesity [id number] Z68.30 Osteoarthr itis of knee [id number] M17.11 injected today [id number] West Alfonso MD [address] [place] [address] 06/09/2023 07:54:53 06/09/2023 09:05:26 Body mass index 30+ - obesity [id number] Z68.31 Adult heal th examination [id number] Z00.00 Hyperlipidemia 85491007 E78.5 Family his tory of malignant neoplasm of prostate [id number] Z80.42 Primary er ectile dysfunction 577593705 N52.9 Impaired f asting glycemia 569588633 R73.01 Osteoarthr itis of knee 409948369 M17.9 had meniscal repair 05/23/23, doing well Decreased hearing 900249 001 H91.93 Atypical chest pain 1025 40833 R07.89 Health Concerns Section Related Observation LastModified by Organization Detai ls LastModified Time None Recorded Concern Status LastModified by Organization Details LastModified Time None Recorded Advance Directives Directive N: Payers Encounter Date Sequence Insurance Name Policy Number Policy Diaz Covered Member ID Diaz Member ID Guarantor Name 06/01/2021 1 [employer] ([facility]) [id number] Waldo Villagomez [id number] Waldo Villagomez 06/05/2022 1 [place] [id number] M Waldo Villagomez [id number] Waldo Villagomez 03/13/2023 1 [place] [id number] M Waldo Villagomez [id number] Waldo Villagomez 04/04/2023 1 [place] [id number] M Waldo Villagomez [id number] Waldo Villagomez 06/09/2023 1 [place] [id number] M Waldo Villagomez [id number] Waldo Villagomez Notes Date Note Type Note Provider Name and Address Organization Details Recorded Time 06/01/2021 text/html Here for CPE.Goi ng to gym and walking a few days/week. 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 Has not seen ENT for this. Nasal fracture in High School.Plant-based diet, lost 6 lb in past year.Colonoscopy 2015. West Alfonso MD [address] [place], [phone], [facility] 06/01/2021 18:06:32 06/05/2022 text/html Here for CPE.Colonoscopy 11/2021 - 5mm tubular adenoma, repeat in 5y.More active at gym, but right knee has been bothersome. Had MRI and steroid injection about 5y ago. 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 Father had HF but lived to . West Alfonso MD [address] [place] [address], [phone], [facility] 06/05/2022 14:26:50 03/13/2023 text/html Right knee pain starting 8 years ago, recovered after steroid shot, saw orthopedics and had MRI which showed severe OA.Now recurrent x 6-8 weeks, no injury. Walks often at work, hikes at times but downhill is very painful.Had lost weight down to 220, regained some in past few months when unable to exercise. Daughter is a personal investment adviser, he has been trying to strengthen knee. West Alfonso MD [address] [place] [address], [phone], [facility] 03/13/2023 13:44:48 04/04/2023 text/html Right knee pain continues, requesting steroid shot for relief of pain. Will see orthopedist in [place] next month, after getting MRI. Hard to work out at gym, no longer playing basketball. Painful at night, interferes with sleep. Taking tylenol and advil.Going to [place] next week. West Alfonso MD [address] [place], [phone], [facility] 04/04/2023 13:00:17 06/09/2023 text/html Here for CPE.Had right knee meniscal surgery 05/23/23, no note, doing well, has had followup.12 lb weight loss overall since last year.Colonoscopy 11/2021 - 5mm tubular adenoma, repeat in 5y.c/o hearing loss lately.c/o occasional substernal chest pains, not exertional. Father had CAD and HF, lived to age 96.Had flu/COVID and shingles shots. West Alfonso MD [address] [place] [address], [phone], [facility]. 06/09/2023 13:26:25
== END 2024-08-26 08:24 | disposition home or self-care (01) ==
LOC: HO.HMGCX 08:23
PROVIDERS: PCP Family Medicine; Visit Provider Urology
DX: N50.89 Other specified disorders of the male genital organs (principal)
CPT/HCPCS: 76870

== ENCOUNTER → 2024-08-26 08:26 | Outpatient (BNV) | payer BC, SELFPAY | PROVIDERS: PCP Family Medicine; Visit Provider Radiology Diagnostic Radiology | DX: N43.3 Hydrocele, unspecified (principal) | CPT/HCPCS: 76870 ==

== ENCOUNTER 2024-09-16 08:24 | Outpatient (AMB) | payer BC, SELFPAY ==
--- NOTE | 2024-09-16 07:00 | A.OFFVIS_ITS ---
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: 10w/US Intake Note: Patient is present for 10 week follow up/US Urology Medications: Sildenafil Antibiotic Allergy: None Blood Thinner: None Market Risk Specialist Required: No Accompanied by: Self / Same As Patient Allergies No Known Allergies Allergy (Verified 09/16/24 08:53) HPI Comments Details: 09/15/24--FU Scrotal US--- I explained the diagnosis of hydrocele, emphasizing the presence of fluid accumulation around both testicles, with the left side being particularly affected. I detailed the available management options, incl uding the aspiration of fluid, which offers a temporary solution, as the fluid is likely to reaccumulate. I advised that a surgical procedure involving the drainage of fluid and excision of the membrane may provide a more permanent solution, as this addresses the underlying cause. We discussed the procedure and subsequent recovery, which typically involves transient swelling and bruising. Discussion for proceeding with surgical intervention on the left side initially, agreeing to re-evaluate the right side if necessary post-recovery. Results- Ultrasound: Large left hydrocele. 1.4 x 0.5 x 1.2 cm left epididymal head cyst. Small to moderate right hydrocele containing septations and debris. 07/08/24--Waldo is a 64 year old male who is here for evaluation, states he has noticed increased size of testicles, mild discomfort after intercourse, denies any bothersome urinary symptoms. Exam notes scrotal swelling, possible hydrocele, will get scrotal US. Review of Systems Const All systems reviewed & are unremarkable except as noted in HPI and below Reports no additional complaints Eyes Reports no additional complaints ENT Reports no additional complaints Card Reports no additional complaints Resp Reports no additional complaints GI Reports no additional complaints Reports as per HPI Musc Reports no additional complaints Skin/Breast Reports system reviewed and no additional complaints, except as documented Neuro Reports no additional complaints Psych Reports no additional complaints Endo Reports no additional complaints Willy/Lymph Reports no additional complaints Aller/Immun Reports no additional complaints Results Reviewed Results Reviewed: Date of Service: 08/26/24 EXAMINATION: US SCROTUM HISTORY: N50.89 - scrotal swelling. COMPARISONS: There are no prior studies for comparison. FINDINGS: Real-time grayscale ultrasound imaging of the scrotum was performed. RIGHT TESTICLE: The right testis measures 4.8 x 1.8 x 3.4 cm and demonstrates normal homogeneous echotexture. There is a 4 x 7 x 2 mm testicular cyst. No solid mass is identified. The right testis demonstrates normal color Doppler flow. RIGHT EPIDIDYMIS: Normal in size, shape, and vascularity. LEFT TESTICLE: The left testis measures 3.3 x 1.4 x 3.7 cm and demonstrates normal homogeneous echotexture. There is a 1.6 x 0.5 x 0.9 cm testicular cyst. No solid mass is identified. The left testis demonstrates normal color Doppler flow. LEFT EPIDIDYMIS: Normal in size, shape, and vascularity. There is a 1.4 x 0.5 x 1.2 cm epididymal head cyst. VARICOCELE: None. HYDROCELE: There is a small to moderate-sized right hydrocele containing debris and septations. There is a large left hydrocele. OTHER COMMENTS: None. US/US scrotum IMPRESSION: Large left hydrocele. Small to moderate right hydrocele containing septations and debris. 1.4 x 0.5 x 1.2 cm left epididymal head cyst. Assessment & Plan Assessment & Plan (1) Scrotal swelling: Code(s): N50.89 - Other specified disorders of the male genital organs Category: Medical (2) Testicular pain: Code(s): N50.819 - Testicular pain, unspecified Category: Medical (3) Bilateral hydrocele: Code(s): N43.3 - Hydrocele, unspecified Category: Medical Plan Plan B/L hydrocele-- Left >Right Left hydrocelectomy Patient Instructions: The patient had an opportunity to ask questions regarding treatment plan. The patient expressed understanding and agreement with the above treatment plan. The patient is aware they should contact our office by phone for worsening of their current condition or the appearance of new symptoms. Compliance is encouraged with any medications and followup testing that is ordered. It is a privilege to be allowed the opportunity to participate in the urologic care of your patient. If you have any questions or concerns regarding treatment for the above conditions please do not hesitate to contact me. The office telephone contact is [phone]. This note is constructed in part using voice recognition software. While every effort has been made to ensure accuracy health management consultant errors may have been included. Yours sincerely, Jose Stevenson MD Scribe Plan - Not visible on output: Patient was informed and verbally consented to the use of an ambient scribe for clinic note documentation during this visit. Coding Level of Care Code Est Pt Level 4 (88566) Diagnoses Scrotal swelling N50.89 Testicular pain N50.819 Bilateral hydrocele N43.3
--- OUTSIDE RECORDS SUMMARY | 2024-09-16 08:51 | XMS_ITS | Data Portability ---
Author Organization [facility] [employer], svmg_admin Address [address] [place] [id number] Care Team Providers Care Salesperson Stereo Equipment Name Role Phone WEST ALFONSO Primary Care Provider [phone] Assessment No assessment recorded. Plan of Treatment Reminders Order Date Submit Date Provider Last Modified By Organization Details Last Modified Time Details Appointments Physical 40 2024 10:40A M West Alfonso MD Not available Not available Not available Lab PSA, total, serum or plasma 2022 023 [facility], [address] [facility], [place], [address], 09/26/2023 10:08:01 PSA, serum or plasma 2022 023 [facility], [address] [facility], [place], [address], 10/15/2023 15:57:05 lipid panel, serum 2022 023 [facility], [address] [facility], [place], [address], 10/17/2023 10:54:14 CMP, serum or plasma 2022 023 [facility], [address] [facility], [place], [address], 10/14/2023 14:17:03 CMP, serum or plasma 2022 023 ANTOLIN [facility], [address] [facility], [place], [address], 09/26/2023 10:07:58 lipid panel, serum 2022 023 ANTOLIN [facility], [address] [place], [address], 09/26/2023 10:07:59 HbA1c (hemoglob in A1c), blood 2022 023 [facility], [address] [facility], [place], [address], 10/17/2023 10:54:14 HbA1c (hemoglob in A1c), blood 2022 023 [place] [address] [facility], [address] [facility], [place], [address], 09/17/2023 09:29:27 PSA, total, serum or plasma 2021 022 [facility], [address], [address], [address], 06/06/2022 07:06:45 lipid panel, serum 2021 022 [facility], [address], [address], [address], 06/06/2022 07:06:44 CMP, serum or plasma 2021 022 [facility], [address], [place], [place], [address], 06/06/2022 07:06:43 HbA1c (hemoglob in A1c), blood 2021 022 [facility], [address], [place], [place], [address], 06/06/2022 07:06:44 PSA, serum or plasma 2020 021 [employer] [employer], [place], [address] 06/01/2021 10:25:44 CMP, serum or plasma 2020 021 [email or web address], [address], [address], [place], [address], 10/10/2021 14:14:31 lipid panel, serum 2020 021 [facility], [address], [address], [place], [address], 10/11/2021 08:53:[address] referral 2022 023 [facility], [address] [place] [address], [address], 10/08/2023 10:37:48 orthopedi c surgeon referral 2022 023 gamaliel Shook MD, [address] [place], [address], 10/08/2023 10:37:46 gastroent erologist referral - tubular adenoma 2014 021 [facility], [address] [place] [address], [address], 03/12/2022 10:33:01 Procedures None recorded. Surgeries None recorded. Imaging electroca rdiogram 2022 023 [facility] In-Office Order, Internal Use Only DO Not Attach Compendium DO Not Attach Compendium, Do Not Delete/merge, [id number] 06/09/2023 11:29:36 exercise stress test 2022 023 [facility] (Imaging), [address] [place] [address], [place], [address], 08/21/2023 10:06:19 XR, knee, 3 view 2022 023 [facility] (Imaging), [address] [place], [address], 06/09/2023 08:23:04 XR, knee, 3 view 2021 [facility] (Radiology), [address] [place], [address], 07/17/2022 20:15:27 Medication Orders atorvasta tin 20 mg tablet [facility]22 [facility]23 [id number] [address] [place], [address], 06/09/2023 08:45:05 sildenafi l 50 mg tablet 2022 023 [facility] [address] [place], [address], 06/09/2023 08:42:55 atorvasta tin 20 mg tablet 2021 022 [facility] [address] [place], [address], 06/05/2022 08:30:40 sildenafi l 50 mg tablet 2021 022 [facility] [address] [place], [address], 06/05/2022 08:30:39 sildenafi l 50 mg tablet 2020 021 [id number], [address] [place] [address], [address], 06/01/2021 08:29:31 Patient TargetsNo targets recorded. Patient Instructions Encounter Date Encounter Id Patient Instructions Last Modified By Organization Details Last Modified Time 06/01/2021 [id number] nasal septum repair: before your surgery dlarrabee Not available 06/01/2021 08:32:45 When You Want to Lose Weight: Care Instructions dlarrabee Not available 06/01/2021 18:02:21 high cholesterol : care instructions dlarrabee Not available 06/01/2021 08:29:27 06/05/2022 [id number] influenza (flu) vaccine: care instructions dlarrabee Not [...] weight dlarrabee Not available 06/05/2022 08:30:36 03/13/2023 [id number] knee arthritis: care instructions dlarrabee Not available 03/13/2023 09:11:06 A healthy lifestyle: care instructions dlarrabee Not available 03/13/2023 09:11:06 body mass index: care instructions dlarrabee Not available 03/13/2023 09:11:06 learning about healthy weight dlarrabee Not available 03/13/2023 09:11:06 04/04/2023 [id number] knee arthritis: care instructions dlarrabee Not available 04/04/2023 10:01:13 A healthy lifestyle: care instructions dlarrabee Not available 04/04/2023 10:01:13 body mass index: care instructions dlarrabee Not available 04/04/2023 10:01:13 learning about healthy weight dlarrabee Not available 04/04/2023 10:01:13 06/09/2023 [id number] knee arthritis: care instructions dlarrabee Not available [...] Not available 06/09/2023 08:42:52 Reason for Referral Patient Registration Manager Referral for Screening for malignant neoplasm of colon tubular adenoma 2014 Referring Physician: West Alfonso [facility], Encounter Date: 06/01/2021 Orthopedic Surgeon Referral for Osteoarthritis of knee Referring Physician: West Alfonso [facility], Encounter Date: 03/13/2023 Certified Nursing Attendant Referral for Dec reased hearing Referring Physician: West Alfonso [facility], Encounter Date: 06/09/2023 Results Created Date Observation Date Name Description Value Unit Range Abnormal Flag Note LastModifiedBy Organization Detail LastModifiedTime 10/20/19 22 10/19/2021 LIPID PANEL WITH REFLE X TO DIREC T LDL cholesterol, total 155 mg/dL <200 normal Not Available [facility] [address], [address], 10/19/2021 20:46:10 10/20/19 22 10/19/2021 LIPID PANEL WITH REFLE X TO DIREC T LDL HDL cholesterol 50 mg/dL > or = 40 normal Not Available [facility] [address], [address], 10/19/2021 20:46:10 10/20/19 22 10/19/2021 LIPID PANEL WITH REFLE X TO DIREC T LDL triglyceride s 116 mg/dL <150 normal Not Available [facility] [address], [address], 10/19/2021 20:46:10 10/20/19 22 10/19/2021 LIPID PANEL WITH REFLE X TO DIREC T LDL LDL-choleste rol 84 mg/dL _(mraianna c) normal Refer ence range : <100 Rubi able range <100 mg/dL for prima ry preve ntion ; <70 mg/dL for patie nts with CHD or diabe tic patie nts with > or = 2 CHD risk facto rs. LDL-C is now calcu lated using the Cherie n[facility] kins cindy browning n, which is a valid ated novel alfredo jaimes accur acy than the [employer] equat ion in the estim ation of LDL-C . Cherie parada SS et al. SCOTT. 2013; 310(1 9): 2061- 2068 (http ://ed ucati on.Qu estDi Kashlesss. com/f aq/FA Q164) Not Available [facility] [place] [facility] [address], [place], [address], 10/19/2021 20:46:10 10/20/19 22 10/19/2021 LIPID PANEL WITH REFLE X TO DIREC T LDL chol/HDLC ratio 3.1 (calc ) <5.0 normal Not Available [facility] [place] [facility] [address], [place], [address], 10/19/2021 20:46:10 10/20/19 22 10/19/2021 LIPID PANEL WITH REFLE X TO DIREC T LDL non HDL cholesterol 105 mg/dL _(marianna c) <130 normal For patie nts with diabe emile plus 1 major ASCVD risk facto r, treat ing to a non-H DL-C goal of <100 mg/dL (LDL- C of <70 mg/dL ) is renee mott optio n. Not Available [facility] [place] [facility] [address], [place], [address], 10/19/2021 20:46:10 10/20/19 22 10/19/2021 LIPID PANEL WITH REFLE X TO DIREC T LDL copy(ies) sent to: NUVIA VASQUEZ MASTLizbeth R ACCOU N 200 [facility] [place] [phone] Not Available [facility] [place] [facility] [address], [place], [address], 10/19/2021 20:46:10 10/20/19 22 10/19/2021 COMPR EHENS HAYLEY METAB OLIC PANEL glucose 115 mg/dL 65-99 high Fasti ng refer ence inter mili For someo ne witho ut known diabe emile, a gluco se value betwe en 100 and 125 mg/dL is consi stent with predi abete s and shoul d be confi rmed with a follo w-up test. Not Available [facility] [place] [facility] [address], [place], [address], 10/19/2021 20:46:11 10/20/19 22 10/19/2021 COMPR EHENS HAYLEY METAB OLIC PANEL urea nitrogen (BUN) 16 mg/dL 7-25 normal Not Available [facility] [place] [facility] [address], [place], [address], 10/19/2021 20:46:11 10/20/19 22 10/19/2021 COMPR EHENS HAYLEY METAB OLIC PANEL creatinine 0.95 mg/dL 0.70-1 .25 normal For patie nts >49 years of age, the refer ence limit for Creat inine is appro ximat kamla 13% highe r for peopl e ident ified as Afric an-Am rosi n. Not Available [facility] [address], [place], [address], 10/19/2021 20:46:11 10/20/19 22 10/19/2021 COMPR EHENS HAYLEY METAB OLIC PANEL eGFR non-afr. pitcairn islander 86 mL/mi n/1.7 3m2 > or = 60 normal Not Available [facility] [place] [facility] [address], [place], [address], 10/19/2021 20:46:11 10/20/19 22 10/19/2021 COMPR EHENS HAYLEY METAB OLIC PANEL eGFR 100 mL/mi n/1.7 3m2 > or = 60 normal Not Available [facility] [address], [place], [address], 10/19/2021 20:46:11 10/20/19 22 10/19/2021 COMPR EHENS HAYLEY METAB OLIC PANEL BUN/creatini ne ratio NOT APPLIC ABLE (calc ) 6-22 Not Available [facility] [address], [place], [address], 10/19/2021 20:46:11 10/20/19 22 10/19/2021 COMPR EHENS HAYLEY METAB OLIC PANEL sodium 139 mmol/ L 135-14 6 normal Not Available [facility] [address], [place], [address], 10/19/2021 20:46:11 10/20/19 22 10/19/2021 COMPR EHENS HAYLEY METAB OLIC PANEL potassium 4.7 mmol/ L 3.5-5. 3 normal Not Available [facility] [address], [place], [address], 10/19/2021 20:46:11 10/20/19 22 10/19/2021 COMPR EHENS HAYLEY METAB OLIC PANEL chloride 105 mmol/ L 98-110 normal Not Available [facility] [address], [place], [address], 10/19/2021 20:46:11 10/20/19 22 10/19/2021 COMPR EHENS HAYLEY METAB OLIC PANEL carbon dioxide 26 mmol/ L 20-32 normal Not Available [facility] [address], [place], [address], 10/19/2021 20:46:11 10/20/19 22 10/19/2021 COMPR EHENS HAYLEY METAB OLIC PANEL calcium 10.1 mg/dL 8.6-10 .3 normal Not Available [facility] [place] [facility] [address], [place], [address], 10/19/2021 20:46:11 10/20/19 22 10/19/2021 COMPR EHENS HAYLEY METAB OLIC PANEL protein, total 7.8 g/dL 6.1-8. 1 normal Not Available [facility] [place] [facility] [address], [place], [address], 10/19/2021 20:46:11 10/20/19 22 10/19/2021 COMPR EHENS HAYLEY METAB OLIC PANEL albumin 4.7 g/dL 3.6-5. 1 normal Not Available [facility] [address], [place], [address], 10/19/2021 20:46:11 10/20/19 22 10/19/2021 COMPR EHENS HAYLEY METAB OLIC PANEL globulin 3.1 g/dL_ (calc ) 1.9-3. 7 normal Not Available [facility] [place] [facility] [address], [place], [address], 10/19/2021 20:46:11 10/20/19 22 10/19/2021 COMPR EHENS HAYLEY METAB OLIC PANEL albumin/glob ulin ratio 1.5 (calc ) 1.0-2. 5 normal Not Available [facility] [address], [place], [address], 10/19/2021 20:46:11 10/20/19 22 10/19/2021 COMPR EHENS HAYLEY METAB OLIC PANEL bilirubin, total 0.6 mg/dL 0.2-1. 2 normal Not Available [facility] [address], [place], [address], 10/19/2021 20:46:11 10/20/19 22 10/19/2021 COMPR EHENS HAYLEY METAB OLIC PANEL alkaline phosphatase 92 U/L 35-144 normal Not Available [email or web address] [address], [address], 10/19/2021 20:46:11 10/20/19 22 10/19/2021 COMPR EHENS HAYLEY METAB OLIC PANEL AST 29 U/L 10-35 normal Not Available [facility] [address], [address], 10/19/2021 20:46:11 10/20/19 22 10/19/2021 COMPR EHENS HAYLEY METAB OLIC PANEL ALT 43 U/L 9-46 normal Not Available [facility] [address], [address], 10/19/2021 20:46:11 10/20/19 22 10/19/2021 COMPR EHENS HAYLEY METAB OLIC PANEL copy(ies) sent to: [facility] ACC[facility] N [address] [place] [address] [place] [phone] Not Available [facility] [address], [address], 10/19/2021 20:46:11 10/20/19 22 10/19/2021 PSA, TOTAL PSA, total 1.06 NG/mL < or = 4.00 normal The total PSA value from this assay syste m is stand ardiz ed again st the [facility] stand zina. The test resul t will be appro ximat kamla 20% lower when [place] red to the equim olar- stand ardiz ed total PSA (Gonasles man Coult er). [place] rison of seria [...] not be inter prete d as absol prairie band evide nce of the prese nce or absen ce of disea se. Not Available [facility] [place] [facility] [address], [place], [address], 10/19/2021 20:46:11 10/20/19 22 10/19/2021 PSA, TOTAL copy(ies) sent to: [facility] ACCOU N 200 [facility] [place] [phone] Not Available [facility] [place] [facility] [address], [place], [address], 10/19/2021 20:46:11 06/05/20 22 06/05/2022 COMP. METAB OLIC PANEL (14) glucose 120 mg/dL 70-99 above high normal Not Available [facility] ([facility]) [address] [place], [address], 06/06/2022 07:06:43 06/05/20 22 06/05/2022 COMP. METAB OLIC PANEL (14) BUN 10 mg/dL 8-27 Not Available [facility] ([facility]) [address] [place], [address], 06/06/2022 07:06:43 06/05/20 22 06/05/2022 COMP. METAB OLIC PANEL (14) creatinine 0.88 mg/dL 0.76-1 .27 Not Available [facility] ([facility]) [address] [place], [address], 06/06/2022 07:06:43 06/05/20 22 06/05/2022 COMP. METAB OLIC PANEL (14) eGFR 97 mL/mi n/1.7 3 >59 Not Available [facility] ([facility]) [address] [place], [address], 06/06/2022 07:06:43 06/05/20 22 06/05/2022 COMP. METAB OLIC PANEL (14) BUN/creatini ne ratio 11 10-24 Not Available [facility] ([facility]) [address] [facility], [place], [address], 06/06/2022 07:06:43 06/05/20 22 06/05/2022 COMP. METAB OLIC PANEL (14) sodium 140 mmol/ L 134-14 4 Not Available [facility] ([facility]) [address] [facility], [place], [address], 06/06/2022 07:06:43 06/05/20 22 06/05/2022 COMP. METAB OLIC PANEL (14) potassium 5.2 mmol/ L 3.5-5. 2 Not Available [facility] ([facility]) [address] [facility], [place], [address], 06/06/2022 07:06:43 06/05/20 22 06/05/2022 COMP. METAB OLIC PANEL (14) chloride 101 mmol/ L 96-106 Not Available [facility] ([facility]) [address] [facility], [place], [address], 06/06/2022 07:06:43 06/05/20 22 06/05/2022 COMP. METAB OLIC PANEL (14) carbon dioxide, total 27 mmol/ L 20-29 Not Available [facility] ([facility]) [address] [place], [address], 06/06/2022 07:06:43 06/05/20 22 06/05/2022 COMP. METAB OLIC PANEL (14) calcium 9.7 mg/dL 8.6-10 .2 Not Available [facility] ([facility]) [address] [place], [address], 06/06/2022 07:06:43 06/05/20 22 06/05/2022 COMP. METAB OLIC PANEL (14) protein, total 7.8 g/dL 6.0-8. 5 Not Available [facility] ([facility]) [address] [place], [address], 06/06/2022 07:06:43 06/05/20 22 06/05/2022 COMP. METAB OLIC PANEL (14) albumin 4.8 g/dL 3.8-4. 8 Not Available [facility] ([facility]) [address] [place], [address], 06/06/2022 07:06:43 06/05/20 22 06/05/2022 COMP. METAB OLIC PANEL (14) globulin, total 3.0 g/dL 1.5-4. 5 Not Available [facility] ([facility]) [address] [place], [address], 06/06/2022 07:06:43 06/05/20 22 06/05/2022 COMP. METAB OLIC PANEL (14) A/G ratio 1.6 1.2-2. 2 Not Available [facility] ([facility]) [address] [place], [address], 06/06/2022 07:06:43 06/05/20 22 06/05/2022 COMP. METAB OLIC PANEL (14) bilirubin, total 0.6 mg/dL 0.0-1. 2 Not Available [facility] ([facility]) [address] [place], [address], 06/06/2022 07:06:43 06/05/20 22 06/05/2022 COMP. METAB OLIC PANEL (14) alkaline phosphatase 107 IU/L 44-121 Not Available [facility] ([facility]) [address] [place], [address], 06/06/2022 07:06:43 06/05/20 22 06/05/2022 COMP. METAB OLIC PANEL (14) AST (SGOT) 34 IU/L 0-40 Not Available [facility] ([facility]) [address] [facility], [place], [address], 06/06/2022 07:06:43 06/05/20 22 06/05/2022 COMP. METAB OLIC PANEL (14) ALT (SGPT) 59 IU/L 0-44 above high normal Not Available [facility] ([facility]) [address] [facility], [place], [address], 06/06/2022 07:06:43 06/05/20 22 06/05/2022 LIPID PANEL cholesterol, total 169 mg/dL 100-19 9 Not Available [facility] ([facility]) [address] [facility] [place], [address], 06/06/2022 07:06:44 06/05/20 22 06/05/2022 LIPID PANEL triglyceride s 139 mg/dL 0-149 Not Available [facility] ([facility]) [address] [place], [address], 06/06/2022 07:06:44 06/05/20 22 06/05/2022 LIPID PANEL HDL cholesterol 52 mg/dL >39 Not Available [facility] ([facility]) [address] [facility], [place], [address], 06/06/2022 07:06:44 06/05/20 22 06/05/2022 LIPID PANEL VLDL cholesterol marianna 24 mg/dL 5-40 Not Available [facility] ([facility]) [address] [place], [address], 06/06/2022 07:06:44 06/05/20 22 06/05/2022 LIPID PANEL LDL chol calc ([facility]) 93 mg/dL 0-99 Not Available [facility] ([facility]) [address] [place], [address], 06/06/2022 07:06:44 06/05/20 22 06/05/2022 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 6 above high normal Predi abete s: 5.7 - 6.4 Diabe emile: >6.4 Glyce tiffanie contr ol for adult s with diabe emile: <7.0 Not Available [facility] ([facility]) [address] [facility], [place], [address], 06/06/2022 07:06:44 06/05/2006/05/2022 PROST ATE-S PECIF IC [...] t be inter prete d as absol [place] band evide nce of the prese nce or absen ce of abner romano se. Not Available [facility] ([facility]) [address] [facility], [place], [address], 06/06/2022 07:06:45 09/25/19 24 09/26/2023 COMP. METAB OLIC PANEL (14) glucose 110 mg/dL 70-99 above high normal Not Available [facility] ([facility]) [address] [facility], [place], [address], 09/26/2023 10:07:58 09/25/19 24 09/26/2023 COMP. METAB OLIC PANEL (14) BUN 16 mg/dL 8-27 Not Available [facility] ([facility]) [address] [facility], [place], [address], 09/26/2023 10:07:58 09/25/19 24 09/26/2023 COMP. METAB OLIC PANEL (14) creatinine 0.82 mg/dL 0.76-1 .27 Not Available [facility] ([facility]) [address] [facility], [place], [address], 09/26/2023 10:07:58 09/25/19 24 09/26/2023 COMP. METAB OLIC PANEL (14) eGFR 99 mL/mi n/1.7 3 >59 Not Available [facility] ([facility]) [address] [facility], [place], [address], 09/26/2023 10:07:58 09/25/19 24 09/26/2023 COMP. METAB OLIC PANEL (14) BUN/creatini ne ratio 20 10-24 Not Available [facility] ([facility]) [address] [facility], [place], [address], 09/26/2023 10:07:58 09/25/19 24 09/26/2023 COMP. METAB OLIC PANEL (14) sodium 142 mmol/ L 134-14 4 Not Available [facility] ([facility]) [address] [facility], [place], [address], 09/26/2023 10:07:58 09/25/19 24 09/26/2023 COMP. METAB OLIC PANEL (14) potassium 5.0 mmol/ L 3.5-5. 2 Not Available [facility] ([facility]) [address] [facility], [place], [address], 09/26/2023 10:07:58 09/25/19 24 09/26/2023 COMP. METAB OLIC PANEL (14) chloride 102 mmol/ L 96-106 Not Available [facility] ([facility]) [address] [place], [address], 09/26/2023 10:07:58 09/25/19 24 09/26/2023 COMP. METAB OLIC PANEL (14) carbon dioxide, total 23 mmol/ L 20-29 Not Available [facility] ([facility]) [address] [place], [address], 09/26/2023 10:07:58 09/25/19 24 09/26/2023 COMP. METAB OLIC PANEL (14) calcium 10.2 mg/dL 8.6-10 .2 Not Available [facility] ([facility]) [address] [place], [address], 09/26/2023 10:07:58 09/25/19 24 09/26/2023 COMP. METAB OLIC PANEL (14) protein, total 7.8 g/dL 6.0-8. 5 Not Available [facility] ([facility]) [address] [place], [address], 09/26/2023 10:07:58 09/25/19 24 09/26/2023 COMP. METAB OLIC PANEL (14) albumin 4.9 g/dL 3.9-4. 9 Not Available [facility] ([facility]) [address] [place], [address], 09/26/2023 10:07:58 09/25/19 24 09/26/2023 COMP. METAB OLIC PANEL (14) globulin, total 2.9 g/dL 1.5-4. 5 Not Available [facility] ([facility]) [address] [place], [address], 09/26/2023 10:07:58 09/25/19 24 09/26/2023 COMP. METAB OLIC PANEL (14) A/G ratio 1.7 1.2-2. 2 Not Available [facility] ([facility]) [address] [facility] [place], [address], 09/26/2023 10:07:58 09/25/19 24 09/26/2023 COMP. METAB OLIC PANEL (14) bilirubin, total 0.6 mg/dL 0.0-1. 2 Not Available [facility] ([facility]) [address] [facility] [place], [address], 09/26/2023 10:07:58 09/25/19 24 09/26/2023 COMP. METAB OLIC PANEL (14) alkaline phosphatase 100 IU/L 44-121 Not Available [facility] ([facility]) [address] [facility], [place], [address], 09/26/2023 10:07:58 09/25/19 24 09/26/2023 COMP. METAB OLIC PANEL (14) AST (SGOT) 36 IU/L 0-40 Not Available [facility] ([facility]) [address] [facility], [place], [address], 09/26/2023 10:07:58 09/25/19 24 09/26/2023 COMP. METAB OLIC PANEL (14) ALT (SGPT) 53 IU/L 0-44 above high normal Not Available [facility] ([facility]) [address] [facility], [place], [address], 09/26/2023 10:07:58 09/25/19 24 09/26/2023 LIPID PANEL cholesterol, total 177 mg/dL 100-19 9 Not Available [facility] ([facility]) [address] [facility], [place], [address], 09/26/2023 10:07:59 09/25/19 24 09/26/2023 LIPID PANEL triglyceride s 221 mg/dL 0-149 above high normal Not Available [facility] ([facility]) [address] [facility] [place], [address], 09/26/2023 10:07:59 09/25/19 24 09/26/2023 LIPID PANEL HDL cholesterol 53 mg/dL >39 Not Available [facility] ([facility]) [address] [place], [address], 09/26/2023 10:07:59 09/25/19 24 09/26/2023 LIPID PANEL VLDL cholesterol marianna 37 mg/dL 5-40 Not Available [facility] ([facility]) [address] [place], [address], 09/26/2023 10:07:59 09/25/19 24 09/26/2023 LIPID PANEL LDL chol calc ([facility]) 87 mg/dL 0-99 Not Available [facility] ([facility]) [address] [place], [address], 09/26/2023 10:07:59 09/25/19 24 09/26/2023 LIPID PANEL 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 6 above high normal Predi abete s: 5.7 - 6.4 Diabe emile: >6.4 Glyce tiffanie contr ol for adult s with diabe emile: <7.0 Not Available [facility] ([facility]) [address] [place], [address], 09/26/2023 10:08:00 09/25/19 24 09/26/2023 PROST ATE-S [...] kits canno t be used inter valerio eably . Resul ts canno t be inter prete d as absol [place] evide nce of the prese nce or absen ce of abner ku disea se. Not Available [facility] ([facility]) [address] [facility], [place], [address], 09/26/2023 10:08:00 06/09/20 23 elect rocar diogr am No observ ation record ed. [email or web address] In-Office Order Internal Use Only DO Not Attach Compendium DO Not Attach Compendium, Do Not Delete/merge, [id number] 06/09/2023 08:35:18 06/10/20 23 06/09/2023 elect rocar diogr am No observ ation record ed. BARCODE In-Office Order Internal Use Only DO Not Attach Compendium DO Not Attach Compendium, Do Not Delete/merge, [id number] 06/10/2023 15:23:22 08/21/19 24 08/18/2023 exerc ise stres s test No observ ation record ed. [facility] (Medical Records) [address] [place], [address], 08/26/2023 11:24:41 11/07/19 24 09/16/2023 US, echoc ardio gram, trans thora cic, compl ete, w/ color flow No observ ation record ed. [facility] [address] [place], [address], 11/07/2023 16:23:11 08/28/19 25 08/26/2024 US, scrot um No observ ation record ed. er[facility] [address] [place] [address] Dr Broussard, [place], [address], 08/27/2024 12:13:40 Result Notes None recorded. Problems Name Problem SNOMED Code Status Onset Date Resolution Date Notes Provider Name and Address Organization Details Recorded Time Hyperlipidemia 70348459 Active 2019 West Alfonso MD [address] [place] [address], [phone] , [facility] 2 16:27:44 Primary erectile dysfunction 993004504 Active 2019 West Alfonso MD [address] [place] [address], [phone] , [facility] 2 16:27:44 Problem Notes None recorded. Procedures Surgical History Date Name Laterality Status Provider Name and Address Organization Details Recorded Time 3 Intra-articular Knee Steroid Injection completed West Alfonso MD [address] [place] [address], [phone], [facility] 04/04/2023 12:59:57 8 I&D completed West Alfonso MD [address] [place] [address], [phone], [facility] 05/11/2018 23:13:35 8 Cerumen Removal completed West Alfonso MD [address] [place] [address], [phone], [facility] 12/18/2017 14:32:49 8 Cryotherapy completed West Alfonso MD [address] [place] [address], [phone], [facility] [employer] 12/18/2017 14:32:41 Imaging Results Imaging Date Name Status LastModified by Organization Details LastModified Time 06/09/2023 electrocardiogram completed dlarrabee In-Offi ce Order Internal Use Only DO Not Attach Compendium DO Not Attach Compendium, Do Not Delete/merge, [id number] 06/09/2023 08:35:18 06/09/2023 electrocardiogram completed BARCODE In-Offi ce Order Internal Use Only DO Not Attach Compendium DO Not Attach Compendium, Do Not Delete/merge, [id number] 06/10/2023 15:23:22 08/18/2023 exercise stress test completed [facility] (Medical Records) [address] [place], [address], 08/26/2023 11:24:41 09/16/2023 US, echocardiogram, transthoracic, complete, w/ color flow completed [facility] [address] [place], [address], 11/07/2023 16:23:11 08/26/2024 US, scrotum completed [facility] [address] [place] [address] Dr Broussard, [place], [address], 08/27/2024 12:13:40 Procedure Notes None recorded. Medical Equipment None [...] Updated DateTime 1 185.42 cm 30.6 kg/m2 238548. 43 g 0 97.4 [degF] 97 % 97 % 90 /min 118 mm[Hg] 80 mm[Hg] Denise Oquendo [facility] 1 08:10:39 Date Recorded Body height Body mass index (BMI) Body weight Body temperature Heart rate Respiratory rate Oxygen saturation Oxygen saturation in Arterial blood by Pulse oximetry Pain severity - 0-10 verbal numeric rating [Score] - Reported Systolic blood pressure Diastolic blood pressure Provider Name and Address Organization Details Last Updated DateTime 2 185.42 cm 32.7 kg/m2 831156. 61 g 98 [degF] 93 /min 14 /min 98 % 98 % 1 126 mm[Hg] 74 mm[Hg] Amy Breaux [facility] 2 08:11:21 Date Recorded Body height Body mass index (BMI) Body weight Pain severity - 0-10 verbal numeric rating [Score] - Reported Respiratory rate Body temperature Heart rate Oxygen saturation Oxygen saturation in Arterial blood by Pulse oximetry Systolic blood pressure Diastolic blood pressure Provider Name and Address Organization Details Last Updated DateTime 3 185.42 cm 30.5 kg/m2 002230. 54 g 2 14 /min 97.1 [degF] 102 /min 98 % 98 % 126 mm[Hg] 80 mm[Hg] Amy Breaux [facility] 3 09:01:02 Date Recorded Body height Body mass index (BMI) Body weight Heart rate Respiratory rate Oxygen saturation Oxygen saturation in Arterial blood by Pulse oximetry Pain severity - 0-10 verbal numeric rating [Score] - Reported Body temperature Systolic blood pressure Diastolic blood pressure Provider Name and Address Organization Details Last Updated DateTime 3 185.42 cm 30.9 kg/m2 116188. 41 g 89 /min 14 /min 98 % 98 % 3 97.6 [degF] 124 mm[Hg] 78 mm[Hg] Amy Breaux [facility] 3 09:38:09 Date Recorded Body height Respiratory rate Body mass index (BMI) Body weight Body temperature Pain severity - 0-10 verbal numeric rating [Score] - Reported Heart rate Oxygen saturation Oxygen saturation in Arterial blood by Pulse oximetry Systolic blood pressure Diastolic blood pressure Provider Name and Address Organization Details Last Updated DateTime 3 185.42 cm 14 /min 31.2 kg/m2 277458. 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 10 Information not available 06/09/2023 Which Of Your Hands Is Dominant? Right Information not available 05/31/2020 Live Alone Or With Others? With Others Information not available 06/09/2023 Date Of Last Colonoscopy 2014 [place] Information not available 06/01/2021 Date Of [...] 0 Information not available 12/18/2017 Have You [place] Down, Depressed, Or Hopeless In The Last [...] Anxious, Or Unable To Sleep At Night)? [id number] Information not available 06/09/2023 Do You Use [...] quadrivalent, PF 2 completed West Alfonso MD [address] [place] [address], [phone], [facility] 06/05/2022 14:13:10 COVID-19, mRNA, LNP-S, PF, 100 mcg/0.5mL dose or 50 mcg/0.25mL dose 1 completed Amy Breaux [facility] 06/05/2022 08:12:35 Influenza, split virus, quadrivalent, preservative 1 completed Denise Oquendo [facility] 06/01/2021 08:09:27 COVID-19, mRNA, LNP-S, PF, 100 mcg/0.5mL dose or 50 mcg/0.25mL dose 2 completed Amy Breaux [facility] 06/05/2022 08:12:35 COVID-19, mRNA, LNP-S, PF, 100 mcg/0.5mL dose or 50 mcg/0.25mL dose 1 completed Amy mcknight [facility] 06/05/2022 08:12:35 Influenza, MDCK, quadrivalent, PF 9 completed Amy mcknight, [facility] 06/05/2022 08:12:35 Influenza, recombinant, quadrivalent, PF 0 completed Amy mcknight, [facility]. 06/05/2022 08:12:35 Tdap 0 completed Amy mcknight, [facility]. 06/05/2022 08:12:35 COVID-19, mRNA, LNP-S, PF, 100 mcg/0.5mL dose or 50 mcg/0.25mL dose 1 completed Amy mcknight [facility] 06/05/2022 08:12:35 COVID-19, mRNA, LNP-S, bivalent, PF, 50 mcg/0.5 mL or 25mcg/0.25 mL dose 2 completed Amy mcknight [facility] 04/04/2023 09:36:26 zoster recombinant 3 completed Amy mcknight, [facility]. 04/04/2023 09:36:25 Influenza, MDCK, quadrivalent, PF 3 completed Amy mcknight [facility]. 06/09/2023 08:21:06 COVID-19, mRNA, LNP-S, PF, 50 mcg/0.5 mL 3 completed Amy mcknight [facility]. 06/09/2023 08:21:06 Past Encounters Encounter ID Performer Location Encounter Start Date Encounter Closed Date Diagnosis/Indication Diagnosis SNOMED-CT Code Diagnosis ICD10 Code Diagnosis Note [id number] West Alfonso MD [facility] [place] [address] [facility] [place] [address] 12/18/2017 08:02:16 12/18/2017 08:54:26 Adult health examination 095503415 Z00.00 Continue exercise, weight loss. Discussed marijuana for stress, doubt very beneficial . Counsellin g if desired. Sleep apnea 57581589 G47 .30 Hyperlipid emia screening 949807256 Z13.220 Varicose v eins of lower extremity 36231761 I83.93 compressio n stockings prn Inflamed s eborrheic keratosis 183227006 L82.0 N2 cryo x 2 lesions Impacted cerumen 9687633 6 H61.21 irrigated with success [id number] [facility] [address] [place] [address] 05/11/2018 12:47:49 05/11/2018 13:50:52 Epidermoid cyst 328231768 L72.0 I+D as above, suture removal in 10-14 days [id number] MD JAH Paz[address] [address] 05/25/2018 08:00:50 05/25/2018 08:28:34 Removal of suture 78530660 Z48.02 sutures out x 2, tolerated well Primary er ectile dysfunction 603936167 N52.9 Exercise, get sleep study, healthy diet. Labs reviewed, all OK except somewhat high cholestero l [id number] MD Janusz Paz[address] [place] [address] 05/26/2019 07:59:59 05/26/2019 08:41:56 Administration of influenza vaccine 00592225 Z23 Adult [facility] th examination 499489372 Z00.00 Continue exercise, weight loss. Sleep apnea 69490258 G47 .30 possible ALOK, recommend sleep study Hyperlipid emia screening 295423218 Z13.973 [id number] [facility] [address] [facility] [address] 05/31/2020 08:03:21 05/31/2020 08:44:20 Adult health examination 910111704 Z00.00 Continue exercise, weight loss. Sleep apnea 79208758 G47 .30 possible ALOK, recommend sleep study Hyperlipidemia 84055851 E78.5 be careful about alcohol in light of atorvastat in Family his tory of malignant neoplasm of prostate 321802206 Z80.42 Active or passive immunization 595649412 Z23 Primary er ectile dysfunction 959207526 N52.9 [id number] West Alfonso MD [facility] [address] [place] [address] 06/01/2021 08:03:31 06/01/2021 08:35:22 Adult health examination 887554287 Z00.00 Hyperlipidemia 29397675 E78.5 Family his tory of malignant neoplasm of prostate 399450229 Z80.42 Primary er ectile dysfunction 400300631 N52.9 Screening for malignant neoplasm of colon 981725630 Z12.11 due for repeat colonoscop y, had tubular adenoma 2015 Deviated nasal septum 12 7801719 J34.2 Obesity 226143998 E66.9 [id number] West Alfonso MD [facility] [address] [place] [address] 06/05/2022 07:53:11 06/05/2022 08:37:21 Body mass index 30+ - obesity 751950166 Z68.32 Adult [facility] th examination 492460695 Z00.00 Hyperlipidemia 78198414 E78.5 Family his tory of malignant neoplasm of prostate 958374413 Z80.42 Primary er ectile dysfunction 426092583 N52.9 Administra tion of influenza vaccine 59523193 Z23 Family his tory of coronary arteriosclerosis 385932129 Z82.49 left prior to getting EKG Impaired f asting glycemia 004367066 R73.01 Osteoarthr itis of knee 679768687 M17.9 not ready for TKA, will consider steroid injection; tylenol prn [id number] West Alfonso MD [address] [address] 03/13/2023 08:42:21 03/13/2023 10:42:57 Body mass index 30+ - obesity 085836846 Z68.30 good job losing weight Osteoarthr itis of knee 414774224 M17.9 considerin g TKA; continue tylenol prn [id number] West Alfonso MD [facility] [address] [place] [address] 04/04/2023 09:08:09 04/04/2023 13:26:30 Body mass index 30+ - obesity 652676001 Z68.30 Osteoarthr itis of knee 881830880 M17.11 injected today [id number] West Alfonso MD [facility] [place] [facility] [address] [place] [address] 06/09/2023 07:54:53 06/09/2023 09:05:26 Body mass index 30+ - obesity 157580590 Z68.31 Adult heal th examination 919552619 Z00.00 Hyperlipidemia 06349255 E78.5 Family his tory of malignant neoplasm of prostate 351629199 Z80.42 Primary er ectile dysfunction 229063315 N52.9 Impaired f asting glycemia 701100639 R73.01 Osteoarthr itis of knee 531556112 M17.9 had meniscal repair 05/23/23, doing well Decreased hearing 003752 001 H91.93 Atypical chest pain 1025 00460 R07.89 Health Concerns Section Related Observation LastModified by Organization Detai ls LastModified Time None Recorded Concern Status LastModified by Organization Details LastModified Time None Recorded Advance Directives Directive N: Payers Encounter Date Sequence Insurance Name Policy Number Policy Diaz Covered Member ID Diaz Member ID Guarantor Name 06/01/2021 1 [facility] [id number] Waldo Villagomez [id number] Waldo Villagomez 06/05/2022 1 [place] [id number] M Waldo Villagomez [id number] Waldo Villagomez 03/13/2023 1 [place] [id number] M Waldo Villagomez [id number] Waldo Villagomez 04/04/2023 1 [place] [id number] M Waldo Villagomez [id number] Waldo Villagomez 06/09/2023 1 [place] [id number] M Waldo Villagomez [id number] 17 Waldo Villagomez Notes Date Note Type Note Provider Name and Address Organization Details Recorded Time 06/01/2021 text/html Here for CPE.Goi ng to gym and walking a few days/week. No chest discomfort while exercising vigorously.Stresse d at work, [employer] business, mostly from home.Tired during day, still snores, has a deviated septum which bothers him when congested. Has not seen ENT for this. Nasal fracture in High School.Plant-based diet, lost 6 lb in past year.Colonoscopy 2014. West Alfonso MD [address] [place] [address], [phone], [facility]. 06/01/2021 18:06:32 06/05/2022 text/html Here for CPE.Colonoscopy 11/2021 - 5mm tubular adenoma, repeat in 5y.More active at gym, but right knee has been bothersome. Had MRI and steroid injection about 5y ago. 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 Father had HF but lived to . West Alfonso MD [address] [place] [address], [phone], [facility]. 06/05/2022 14:26:50 03/13/2023 text/html Right knee pain starting 8 years ago, recovered after steroid shot, saw orthopedics and had MRI which showed severe OA.Now recurrent x 6-8 weeks, no injury. Walks often at work, hikes at times but downhill is very painful.Had lost weight down to 220, regained some in past few months when unable to exercise. Daughter is a personal fitness trainer, he has been trying to strengthen knee. West Alfonso MD [address] [place] [address], [phone], [facility]. 03/13/2023 13:44:48 04/04/2023 text/html Right knee pain continues, requesting steroid shot for relief of pain. Will see orthopedist in [place] next month, after getting MRI. Hard to work out at gym, no longer playing basketball. Painful at night, interferes with sleep. Taking tylenol and advil.Going to [employer] next week. West Alfonso MD [address] [place] [address], [phone], [facility]. 04/04/2023 13:00:17 06/09/2023 text/html Here for CPE.Had right knee meniscal surgery 05/23/23, no note, doing well, has had followup.12 lb weight loss overall since last year.Colonoscopy 11/2021 - 5mm tubular adenoma, repeat in 5y.c/o hearing loss lately.c/o occasional substernal chest pains, not exertional. Father had CAD and HF, lived to age 96.Had flu/COVID and shingles shots. West Alfonso MD [address] [place], [address], [facility]. 06/09/2023 13:26:25
== END 2024-09-16 09:31 | disposition home or self-care (01) ==
LOC: HO.HUSH 08:25
PROVIDERS: PCP Family Medicine; Visit Provider Urology
DX: N50.89 Other specified disorders of the male genital organs (principal); N50.819 Testicular pain, unspecified; N43.3 Hydrocele, unspecified; Z13.9 Encounter for screening, unspecified
CPT/HCPCS: 99214

== ENCOUNTER → 2024-09-16 08:24 | Outpatient (BNVA) | payer BC, SELFPAY | PROVIDERS: PCP Family Medicine; Visit Provider Urology | DX: N50.89 Other specified disorders of the male genital organs (principal); N50.819 Testicular pain, unspecified; N43.3 Hydrocele, unspecified | CPT/HCPCS: 81003 ==

== ENCOUNTER 2024-09-28 11:26 | Day surgery (SDC) | payer BC, SELFPAY ==
--- OUTSIDE RECORDS SUMMARY | 2024-09-20 11:41 | XMS_ITS | Data Portability ---
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 Plan of Treatment Reminders Order Date Submit Date Provider Last Modified By Organization Details Last Modified Time Details Appointments Physical 40 2024 10:40A M West Alfonso MD Not available Not available Not available Lab PSA, total, serum or plasma 2022 023 [employer] [facility], [address] [facility], [place], [address], 09/26/2023 10:08:01 PSA, serum or plasma 2022 023 [employer] [facility], [address] [facility], [place], [address], 10/15/2023 15:57:05 lipid panel, serum 2022 023 [employer] [facility], [address] [facility], [place], [address], 10/17/2023 10:54:14 CMP, serum or plasma 2022 023 [employer] [facility], [address] [facility], [place], [address], 10/14/2023 14:17:03 CMP, serum or plasma 2022 023 ANTOLIN [facility], [address] [facility], [place], [address], 09/26/2023 10:07:58 lipid panel, serum 2022 023 ANTOLIN [facility], [address] [place], [address], 09/26/2023 10:07:59 HbA1c (hemoglob in A1c), blood 2022 023 [facility], [address] [facility], [place], [address], 10/17/2023 10:54:14 HbA1c (hemoglob in A1c), blood 2022 023 [id number] [facility], [address] [facility], [place], [address], 09/17/2023 09:29:27 PSA, total, serum or plasma 2021 022 ANTOLIN [facility], [address], [address], [address], 06/06/2022 07:06:45 lipid panel, serum 2021 022 ANTOLIN [facility], [address], [address], [address], 06/06/2022 07:06:44 CMP, serum or plasma 2021 022 ANTOLIN [facility], [address], [place], [place], [address], 06/06/2022 07:06:43 HbA1c (hemoglob in A1c), blood 2021 022 ANTOLIN [facility], [address], [place], [place], [address], 06/06/2022 07:06:44 PSA, serum or plasma 2020 021 [facility], [place], [address] 06/01/2021 10:25:44 CMP, serum or plasma 2020 021 [email or web address] [facility], [address], [address], [place], [address], 10/10/2021 14:14:31 lipid panel, serum 2020 021 Huiyuan [facility], [address], [address], [place], [address], 10/11/2021 08:53:[address] referral 2022 023 [facility], [address] [place] [address], [address], 10/08/2023 10:37:48 orthopedi c surgeon referral 2022 023 gamaliel Shook MD, [address] [place], [address], 10/08/2023 10:37:46 gastroent erologist referral - tubular adenoma 2014 021 [facility], [address] [place] [address], [address], 03/12/2022 10:33:01 Procedures None recorded. Surgeries None recorded. Imaging electroca rdiogram 2022 023 [facility] In-Office Order, Internal Use Only DO Not Attach Compendium DO Not Attach Compendium, Do Not Delete/merge, [id number] 06/09/2023 11:29:36 exercise stress test 2022 023 [facility] (Imaging), [address] [place] [address], [place], [address], 08/21/2023 10:06:19 XR, knee, 3 view 2022 023 [facility] (Imaging), [address] [place], [address], 06/09/2023 08:23:04 XR, knee, 3 view 2021 [facility] (Radiology), [address] [place], [address], 07/17/2022 20:15:27 Medication Orders atorvasta tin 20 mg tablet [facility]22 [facility]23 [id number] [address] [place], [address], 06/09/2023 08:45:05 sildenafi l 50 mg tablet 2022 023 [id number] [address] [place], [address], 06/09/2023 08:42:55 atorvasta tin 20 mg tablet 2021 022 [facility], [address] [place], [address], 06/05/2022 08:30:40 sildenafi l 50 mg tablet 2021 022 [facility], [address] [place], [address], 06/05/2022 08:30:39 sildenafi l 50 mg tablet 2020 021 [id number], [address] [place] [address], [address], 06/01/2021 08:29:31 Patient TargetsNo targets recorded. Patient Instructions Encounter Date Encounter Id Patient Instructions Last Modified By Organization Details Last Modified Time 06/01/2021 [id number] nasal septum repair: before your surgery dlarrabee Not available 06/01/2021 08:32:45 When You Want to Lose Weight: Care Instructions dlarrabee Not available 06/01/2021 18:02:21 high cholesterol : care instructions dlarrabee Not available 06/01/2021 08:29:27 06/05/2022 [id number] influenza (flu) vaccine: care instructions dlarrabee Not [...] weight dlarrabee Not available 06/05/2022 08:30:36 03/13/2023 [id number] knee arthritis: care instructions dlarrabee Not available 03/13/2023 09:11:06 A healthy lifestyle: care instructions dlarrabee Not available 03/13/2023 09:11:06 body mass index: care instructions dlarrabee Not available 03/13/2023 09:11:06 learning about healthy weight dlarrabee Not available 03/13/2023 09:11:06 04/04/2023 [id number] knee arthritis: care instructions dlarrabee Not available 04/04/2023 10:01:13 A healthy lifestyle: care instructions dlarrabee Not available 04/04/2023 10:01:13 body mass index: care instructions dlarrabee Not available 04/04/2023 10:01:13 learning about healthy weight dlarrabee Not available 04/04/2023 10:01:13 06/09/2023 [id number] knee arthritis: care instructions dlarrabee Not available [...] available 06/09/2023 08:42:52 Reason for Referral Patient Services Coordinator Referral for Screening for malignant neoplasm of colon tubular adenoma 2014 Referring Physician: West Alfonso [facility], Encounter Date: 06/01/2021 Orthopedic Surgeon Referral for Osteoarthritis of knee Referring Physician: West Alfonso [facility], Encounter Date: 03/13/2023 Transportation Planning Technician Referral for Dec reased hearing Referring Physician: West Alfonso [facility], Encounter Date: 06/09/2023 Results Created Date Observation Date Name Description Value Unit Range Abnormal Flag Note LastModifiedBy Organization Detail LastModifiedTime 10/20/19 22 10/19/2021 LIPID PANEL WITH REFLE X TO DIREC T LDL cholesterol, total 155 mg/dL <200 normal Not Available [facility] [address], [address], 10/19/2021 20:46:10 10/20/19 22 10/19/2021 LIPID PANEL WITH REFLE X TO DIREC T LDL HDL cholesterol 50 mg/dL > or = 40 normal Not Available [facility] [address], [address], 10/19/2021 20:46:10 10/20/19 22 10/19/2021 LIPID PANEL WITH REFLE X TO DIREC T LDL triglyceride s 116 mg/dL <150 normal Not Available [facility] [address], [address], 10/19/2021 20:46:10 10/20/19 22 10/19/2021 LIPID PANEL [...] is now calcu lated using the Cherie n[facility] kins cindy browning n, which is a valid ated novel alfredo jaimes accur acy than the [employer] georgie equat ion in the estim ation of LDL-C . Cherie parada SS et al. SCOTT. 2013; 310(1 9): 2061- 2068 (http ://ed ucati on.Qu estDi ShareGroves. com/f aq/FA Q164) Not Available [facility] [place] [facility] [address], [place], [address], 10/19/2021 20:46:10 10/20/19 22 10/19/2021 LIPID PANEL WITH REFLE X TO DIREC T LDL chol/HDLC ratio 3.1 (calc ) <5.0 normal Not Available [facility] [place] [facility] [address], [place], [address], 10/19/2021 20:46:10 10/20/19 22 10/19/2021 LIPID PANEL WITH REFLE X TO DIREC T LDL non HDL cholesterol 105 mg/dL _(marianna c) <130 normal For patie nts with diabe emile plus 1 major ASCVD risk facto r, treat ing to a non-H DL-C goal of <100 mg/dL (LDL- C of <70 mg/dL ) is renee mott optio n. Not Available [facility] [place] [facility] [address], [place], [address], 10/19/2021 20:46:10 10/20/19 22 10/19/2021 LIPID PANEL WITH REFLE X TO DIREC T LDL copy(ies) sent to: NUVIA VASQUEZ MASTLizbeth R ACCOU N [address] [facility] [place] [phone] Not Available [facility] [place] [facility] [address], [place], [address], 10/19/2021 20:46:10 10/20/19 22 10/19/2021 COMPR EHENS HAYLEY METAB OLIC PANEL glucose 115 mg/dL 65-99 high Fasti ng refer ence inter mili For someo ne witho ut known diabe emile, a gluco se value betwe en 100 and 125 mg/dL is consi stent with predi abete s and shoul d be confi rmed with a follo w-up test. Not Available [facility] [place] [facility] [address], [place], [address], 10/19/2021 20:46:11 10/20/19 22 10/19/2021 COMPR EHENS HAYLEY METAB OLIC PANEL urea nitrogen (BUN) 16 mg/dL 7-25 normal Not Available [facility] [place] [facility] [address], [place], [address], 10/19/2021 20:46:11 10/20/19 22 10/19/2021 COMPR EHENS HAYLEY METAB OLIC PANEL creatinine 0.95 mg/dL 0.70-1 .25 normal For patie nts >49 years of age, the refer ence limit for Creat inine is appro ximat kamla 13% highe r for peopl e ident ified as Afric an-Am rosi n. Not Available [facility] [address], [place], [address], 10/19/2021 20:46:11 10/20/19 22 10/19/2021 COMPR EHENS HAYLEY METAB OLIC PANEL eGFR non-afr. indian 86 mL/mi n/1.7 3m2 > or = 60 normal Not Available [facility] [place] [facility] [address], [place], [address], 10/19/2021 20:46:11 10/20/19 22 10/19/2021 COMPR EHENS HAYLEY METAB OLIC PANEL eGFR 100 mL/mi n/1.7 3m2 > or = 60 normal Not Available [facility] [address], [place], [address], 10/19/2021 20:46:11 10/20/19 22 10/19/2021 COMPR EHENS HAYLYE METAB OLIC PANEL BUN/creatini ne ratio NOT APPLIC ABLE (calc ) 6-22 Not Available [facility] [address], [place], [address], 10/19/2021 20:46:11 10/20/19 22 10/19/2021 COMPR EHENS HAYLEY METAB OLIC PANEL sodium 139 mmol/ L 135-14 6 normal Not Available [facility] [address], [place], [address], 10/19/2021 20:46:11 10/20/19 22 10/19/2021 COMPR EHENS HAYLEY METAB OLIC PANEL potassium 4.7 mmol/ L 3.5-5. 3 normal Not Available [facility] [address], [place], [address], 10/19/2021 20:46:11 10/20/19 22 10/19/2021 COMPR EHENS HAYLEY METAB OLIC PANEL chloride 105 mmol/ L 98-110 normal Not Available [facility] [address], [place], [address], 10/19/2021 20:46:11 10/20/19 22 10/19/2021 COMPR EHENS HAYLEY METAB OLIC PANEL carbon dioxide 26 mmol/ L 20-32 normal Not Available [facility] [address], [place], [address], 10/19/2021 20:46:11 10/20/19 22 10/19/2021 COMPR EHENS HAYLEY METAB OLIC PANEL calcium 10.1 mg/dL 8.6-10 .3 normal Not Available [facility] [place] [facility] [address], [place], [address], 10/19/2021 20:46:11 10/20/19 22 10/19/2021 COMPR EHENS HAYLEY METAB OLIC PANEL protein, total 7.8 g/dL 6.1-8. 1 normal Not Available [facility] [place] [facility] [address], [place], [address], 10/19/2021 20:46:11 10/20/19 22 10/19/2021 COMPR EHENS HAYLEY METAB OLIC PANEL albumin 4.7 g/dL 3.6-5. 1 normal Not Available [facility] [address], [place], [address], 10/19/2021 20:46:11 10/20/19 22 10/19/2021 COMPR EHENS HAYLEY METAB OLIC PANEL globulin 3.1 g/dL_ (calc ) 1.9-3. 7 normal Not Available [facility] [place] [facility] [address], [place], [address], 10/19/2021 20:46:11 10/20/19 22 10/19/2021 COMPR EHENS HAYLEY METAB OLIC PANEL albumin/glob ulin ratio 1.5 (calc ) 1.0-2. 5 normal Not Available [facility] [address], [place], [address], 10/19/2021 20:46:11 10/20/19 22 10/19/2021 COMPR EHENS HAYLEY METAB OLIC PANEL bilirubin, total 0.6 mg/dL 0.2-1. 2 normal Not Available [facility] [address], [place], [address], 10/19/2021 20:46:11 10/20/19 22 10/19/2021 COMPR EHENS HAYLEY METAB OLIC PANEL alkaline phosphatase 92 U/L 35-144 normal Not Available [facility] [address], [address], 10/19/2021 20:46:11 10/20/19 22 10/19/2021 COMPR EHENS HAYLEY METAB OLIC PANEL AST 29 U/L 10-35 normal Not Available [facility] [address], [address], 10/19/2021 20:46:11 10/20/19 22 10/19/2021 COMPR EHENS HAYLEY METAB OLIC PANEL ALT 43 U/L 9-46 normal Not Available [facility] [address], [address], 10/19/2021 20:46:11 10/20/19 22 10/19/2021 COMPR EHENS HAYLEY METAB OLIC PANEL copy(ies) sent to: [facility] N [address] [place] [address] [place] [phone] Not Available [facility] [address], [address], 10/19/2021 20:46:11 10/20/19 22 10/19/2021 PSA, TOTAL PSA, total 1.06 NG/mL < or = 4.00 normal The total PSA value from this assay syste m is stand ardiz ed again st the [facility] stand zina. The test resul t will [...] not be inter prete d as absol [place] evide nce of the prese nce or absen ce of disea se. Not Available [facility] [place] [facility] [address], [place], [address], 10/19/2021 20:46:11 10/20/19 22 10/19/2021 PSA, TOTAL copy(ies) sent to: [facility] N [address] [facility] [place] [address] Not Available [facility] [place] [facility] [address], [place], [address], 10/19/2021 20:46:11 06/05/20 22 06/05/2022 COMP. METAB OLIC PANEL (14) glucose 120 mg/dL 70-99 above high normal Not Available [facility] ([facility]) [address] [place], [address], 06/06/2022 07:06:43 06/05/20 22 06/05/2022 COMP. METAB OLIC PANEL (14) BUN 10 mg/dL 8-27 Not Available [facility] ([facility]) [address] [place], [address], 06/06/2022 07:06:43 06/05/20 22 06/05/2022 COMP. METAB OLIC PANEL (14) creatinine 0.88 mg/dL 0.76-1 .27 Not Available [facility] ([facility]) [address] [place], [address], 06/06/2022 07:06:43 06/05/20 22 06/05/2022 COMP. METAB OLIC PANEL (14) eGFR 97 mL/mi n/1.7 3 >59 Not Available [facility] ([facility]) [address] [place], [address], 06/06/2022 07:06:43 06/05/20 22 06/05/2022 COMP. METAB OLIC PANEL (14) BUN/creatini ne ratio 11 10-24 Not Available [facility] ([facility]) [address] [facility], [place], [address], 06/06/2022 07:06:43 06/05/20 22 06/05/2022 COMP. METAB OLIC PANEL (14) sodium 140 mmol/ L 134-14 4 Not Available [facility] ([facility]) [address] [facility], [place], [address], 06/06/2022 07:06:43 06/05/20 22 06/05/2022 COMP. METAB OLIC PANEL (14) potassium 5.2 mmol/ L 3.5-5. 2 Not Available [facility] ([facility]) [address] [facility], [place], [address], 06/06/2022 07:06:43 06/05/20 22 06/05/2022 COMP. METAB OLIC PANEL (14) chloride 101 mmol/ L 96-106 Not Available [facility] ([facility]) [address] [facility], [place], [address], 06/06/2022 07:06:43 06/05/20 22 06/05/2022 COMP. METAB OLIC PANEL (14) carbon dioxide, total 27 mmol/ L 20-29 Not Available [facility] ([facility]) [address] [place], [address], 06/06/2022 07:06:43 06/05/20 22 06/05/2022 COMP. METAB OLIC PANEL (14) calcium 9.7 mg/dL 8.6-10 .2 Not Available [facility] ([facility]) [address] [place], [address], 06/06/2022 07:06:43 06/05/20 22 06/05/2022 COMP. METAB OLIC PANEL (14) protein, total 7.8 g/dL 6.0-8. 5 Not Available [facility] ([facility]) [address] [place], [address], 06/06/2022 07:06:43 06/05/20 22 06/05/2022 COMP. METAB OLIC PANEL (14) albumin 4.8 g/dL 3.8-4. 8 Not Available [facility] ([facility]) [address] [place], [address], 06/06/2022 07:06:43 06/05/20 22 06/05/2022 COMP. METAB OLIC PANEL (14) globulin, total 3.0 g/dL 1.5-4. 5 Not Available [facility] ([facility]) [address] [place], [address], 06/06/2022 07:06:43 06/05/20 22 06/05/2022 COMP. METAB OLIC PANEL (14) A/G ratio 1.6 1.2-2. 2 Not Available [facility] ([facility]) [address] [place], [address], 06/06/2022 07:06:43 06/05/20 22 06/05/2022 COMP. METAB OLIC PANEL (14) bilirubin, total 0.6 mg/dL 0.0-1. 2 Not Available [facility] ([facility]) [address] [place], [address], 06/06/2022 07:06:43 06/05/20 22 06/05/2022 COMP. METAB OLIC PANEL (14) alkaline phosphatase 107 IU/L 44-121 Not Available [facility] ([facility]) [address] [place], [address], 06/06/2022 07:06:43 06/05/20 22 06/05/2022 COMP. METAB OLIC PANEL (14) AST (SGOT) 34 IU/L 0-40 Not Available [facility] ([facility]) [address] [facility], [place], [address], 06/06/2022 07:06:43 06/05/20 22 06/05/2022 COMP. METAB OLIC PANEL (14) ALT (SGPT) 59 IU/L 0-44 above high normal Not Available [facility] ([facility]) [address] [facility], [place], [address], 06/06/2022 07:06:43 06/05/20 22 06/05/2022 LIPID PANEL cholesterol, total 169 mg/dL 100-19 9 Not Available [facility] ([facility]) [address] [facility] [place], [address], 06/06/2022 07:06:44 06/05/20 22 06/05/2022 LIPID PANEL triglyceride s 139 mg/dL 0-149 Not Available [facility] ([facility]) [address] [place], [address], 06/06/2022 07:06:44 06/05/20 22 06/05/2022 LIPID PANEL HDL cholesterol 52 mg/dL >39 Not Available [facility] ([facility]) [address] [facility], [place], [address], 06/06/2022 07:06:44 06/05/20 22 06/05/2022 LIPID PANEL VLDL cholesterol marianna 24 mg/dL 5-40 Not Available [facility] ([facility]) [address] [place], [address], 06/06/2022 07:06:44 06/05/20 22 06/05/2022 LIPID PANEL LDL chol calc ([facility]) 93 mg/dL 0-99 Not Available [facility] ([facility]) [address] [place], [address], 06/06/2022 07:06:44 06/05/20 22 06/05/2022 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 6 above high normal Predi abete s: 5.7 - 6.4 Diabe emile: >6.4 Glyce tiffanie contr ol for adult s with diabe emile: <7.0 Not Available [facility] ([facility]) [address] [facility], [place], [address], 06/06/2022 07:06:44 06/05/2006/05/2022 PROST ATE-S PECIF IC [...] t be inter prete d as absol [place] evide nce of the prese nce or absen ce of abner romano se. Not Available [facility] ([facility]) [address] [facility], [place], [address], 06/06/2022 07:06:45 09/25/19 24 09/26/2023 COMP. METAB OLIC PANEL (14) glucose 110 mg/dL 70-99 above high normal Not Available [facility] ([facility]) [address] [facility], [place], [address], 09/26/2023 10:07:58 09/25/19 24 09/26/2023 COMP. METAB OLIC PANEL (14) BUN 16 mg/dL 8-27 Not Available [facility] ([facility]) [address] [facility], [place], [address], 09/26/2023 10:07:58 09/25/19 24 09/26/2023 COMP. METAB OLIC PANEL (14) creatinine 0.82 mg/dL 0.76-1 .27 Not Available [facility] ([facility]) [address] [facility], [place], [address], 09/26/2023 10:07:58 09/25/19 24 09/26/2023 COMP. METAB OLIC PANEL (14) eGFR 99 mL/mi n/1.7 3 >59 Not Available [facility] ([facility]) [address] [facility], [place], [address], 09/26/2023 10:07:58 09/25/19 24 09/26/2023 COMP. METAB OLIC PANEL (14) BUN/creatini ne ratio 20 10-24 Not Available [facility] ([facility]) [address] [facility], [place], [address], 09/26/2023 10:07:58 09/25/19 24 09/26/2023 COMP. METAB OLIC PANEL (14) sodium 142 mmol/ L 134-14 4 Not Available [facility] ([facility]) [address] [facility], [place], [address], 09/26/2023 10:07:58 09/25/19 24 09/26/2023 COMP. METAB OLIC PANEL (14) potassium 5.0 mmol/ L 3.5-5. 2 Not Available [facility] ([facility]) [address] [facility], [place], [address], 09/26/2023 10:07:58 09/25/19 24 09/26/2023 COMP. METAB OLIC PANEL (14) chloride 102 mmol/ L 96-106 Not Available [facility] ([facility]) [address] [place], [place], [address], 09/26/2023 10:07:58 09/25/19 24 09/26/2023 COMP. METAB OLIC PANEL (14) carbon dioxide, total 23 mmol/ L 20-29 Not Available [facility] ([facility]) [address] [place], [place], [address], 09/26/2023 10:07:58 09/25/19 24 09/26/2023 COMP. METAB OLIC PANEL (14) calcium 10.2 mg/dL 8.6-10 .2 Not Available [facility] ([facility]) [address] [place], [place], [address], 09/26/2023 10:07:58 09/25/19 24 09/26/2023 COMP. METAB OLIC PANEL (14) protein, total 7.8 g/dL 6.0-8. 5 Not Available [facility] ([facility]) [address] [place], [address], 09/26/2023 10:07:58 09/25/19 24 09/26/2023 COMP. METAB OLIC PANEL (14) albumin 4.9 g/dL 3.9-4. 9 Not Available [facility] ([facility]) [address] [place], [address], 09/26/2023 10:07:58 09/25/19 24 09/26/2023 COMP. METAB OLIC PANEL (14) globulin, total 2.9 g/dL 1.5-4. 5 Not Available [facility] ([facility]) [address] [place], [address], 09/26/2023 10:07:58 09/25/19 24 09/26/2023 COMP. METAB OLIC PANEL (14) A/G ratio 1.7 1.2-2. 2 Not Available [facility] ([facility]) [address] [place], [address], 09/26/2023 10:07:58 09/25/19 24 09/26/2023 COMP. METAB OLIC PANEL (14) bilirubin, total 0.6 mg/dL 0.0-1. 2 Not Available [facility] ([facility]) [address] [place], [address], 09/26/2023 10:07:58 09/25/19 24 09/26/2023 COMP. METAB OLIC PANEL (14) alkaline phosphatase 100 IU/L 44-121 Not Available [facility] ([facility]) [address] [facility], [place], [address], 09/26/2023 10:07:58 09/25/19 24 09/26/2023 COMP. METAB OLIC PANEL (14) AST (SGOT) 36 IU/L 0-40 Not Available [facility] ([facility]) [address] [facility], [place], [address], 09/26/2023 10:07:58 09/25/19 24 09/26/2023 COMP. METAB OLIC PANEL (14) ALT (SGPT) 53 IU/L 0-44 above high normal Not Available [facility] ([facility]) [address] [facility], [place], [address], 09/26/2023 10:07:58 09/25/19 24 09/26/2023 LIPID PANEL cholesterol, total 177 mg/dL 100-19 9 Not Available [facility] ([facility]) [address] [facility], [place], [address], 09/26/2023 10:07:59 09/25/19 24 09/26/2023 LIPID PANEL triglyceride s 221 mg/dL 0-149 above high normal Not Available [facility] ([facility]) [address] [place], [address], 09/26/2023 10:07:59 09/25/19 24 09/26/2023 LIPID PANEL HDL cholesterol 53 mg/dL >39 Not Available [facility] ([facility]) [address] [place], [address], 09/26/2023 10:07:59 09/25/19 24 09/26/2023 LIPID PANEL VLDL cholesterol marianna 37 mg/dL 5-40 Not Available [facility] ([facility]) [address] [place], [address], 09/26/2023 10:07:59 09/25/19 24 09/26/2023 LIPID PANEL LDL chol calc ([facility]) 87 mg/dL 0-99 Not Available [facility] ([facility]) [address] [place], [address], 09/26/2023 10:07:59 09/25/19 24 09/26/2023 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 6 above high normal Predi abete s: 5.7 - 6.4 Diabe emile: >6.4 Glyce tiffanie contr ol for adult s with diabe emile: <7.0 Not Available [facility] ([facility]) [address] [place], [address], 09/26/2023 10:08:00 09/25/19 24 09/26/2023 PROST ATE-S [...] t be inter prete d as absol [place] evide nce of the prese nce or absen ce of abner ku disea se. Not Available [facility] ([facility]) [address] [facility], [place], [address], 09/26/2023 10:08:00 06/09/20 23 elect rocar diogr am No observ ation record ed. [email or web address] In-Office Order Internal Use Only DO Not Attach Compendium DO Not Attach Compendium, Do Not Delete/merge, [id number] 06/09/2023 08:35:18 06/10/20 23 06/09/2023 elect rocar diogr am No observ ation record ed. BARCODE In-Office Order Internal Use Only DO Not Attach Compendium DO Not Attach Compendium, Do Not Delete/merge, [id number] 06/10/2023 15:23:22 08/21/19 24 08/18/2023 exerc ise stres s test No observ ation record ed. [facility] (Medical Records) [address] [place], [address], 08/26/2023 11:24:41 11/07/19 24 09/16/2023 US, echoc ardio gram, trans thora cic, compl ete, w/ color flow No observ ation record ed. [facility] [address] [place], [address], 11/07/2023 16:23:11 08/28/19 25 08/26/2024 US, scrot um No observ ation record ed. erika [facility] [address] [place] [address] Dr Broussard, [place], [address], 08/27/2024 12:13:40 Result Notes None recorded. Problems Name Problem SNOMED Code Status Onset Date Resolution Date Notes Provider Name and Address Organization Details Recorded Time Hyperlipidemia 51022029 Active 2019 West Alfonso MD [address] [place] [address], [phone] , [facility] 2 16:27:44 Primary erectile dysfunction 004161620 Active 2019 West Alfonso MD [address] [place] [address], [phone] , [facility] 2 16:27:44 Problem Notes None recorded. Procedures Surgical History Date Name Laterality Status Provider Name and Address Organization Details Recorded Time 3 Intra-articular Knee Steroid Injection completed West Alfonso MD [address] [place] [address], [phone], [facility] 04/04/2023 12:59:57 8 I&D completed West Alfonso MD [address] [place] [address], [phone], [facility] 05/11/2018 23:13:35 8 Cerumen Removal completed West Alfonso MD [address] [place] [address], [phone], [facility] 12/18/2017 14:32:49 8 Cryotherapy completed West Alfonso MD [address] [place] [address], [phone], [facility] [facility] 12/18/2017 14:32:41 Imaging Results Imaging Date Name Status LastModified by Organization Details LastModified Time 06/09/2023 electrocardiogram completed dlarrabee In-Offi ce Order Internal Use Only DO Not Attach Compendium DO Not Attach Compendium, Do Not Delete/merge, [id number] 06/09/2023 08:35:18 06/09/2023 electrocardiogram completed BARCODE In-Offi ce Order Internal Use Only DO Not Attach Compendium DO Not Attach Compendium, Do Not Delete/merge, [id number] 06/10/2023 15:23:22 08/18/2023 exercise stress test completed [facility] (Medical Records) [address] [place], [address], 08/26/2023 11:24:41 09/16/2023 US, echocardiogram, transthoracic, complete, w/ color flow completed [facility] [address] [place], [address], 11/07/2023 16:23:11 08/26/2024 US, scrotum completed [facility] [address] [place] [address] Dr Broussard, [place], [address], 08/27/2024 12:13:40 Procedure Notes None recorded. Medical Equipment None Reported. Allergies No known drug allergies Medications Name Sig Start Date Stop Date Status Note LastModified by Organization Details LastModified Time atorvastati n 20 mg tablet TAKE 1 TABLET BY MOUTH EVERY DAY active Not Available Not Available No t Available sildenafil 50 mg tablet TAKE 1 TABLET BY MOUTH EVERY DAY active Not Available Not Available No t Available amoxicillin 875 mg tablet TAKE 1 TABLET BY MOUTH 2 TIMES A DAY UNTIL FINISHED- STARTING 1 DAY PRIOR TO SURGERY active Not Available Not Available No [...] WITH TYLENOL. START 1 DAY BEFORE SURSGERY active Not Available Not Available No t Available naproxen 500 mg tablet TAKE 1 TABLET BY MOUTH TWICE A DAY WITH FOOD active Not Available Not Available No t Available oxycodone 5 mg tablet DIRECTED 1-2 TABLETS EVERY 6 HOURS NEEDED PAIN DO NOT DRIVE WHILE TAKING THIS MEDICATIO N 06/09 completed Not Available Not Available Not Available chlorhexidi ne gluconate 0.12 % mouthwash RINSE WITH 15ML TWICE A DAY AFTER BREAKFAST AND BEFORE BEDTIME active Not Available Not Available No t [...] Updated DateTime 1 185.42 cm 30.6 kg/m2 748807. 43 g 0 97.4 [degF] 97 % 97 % 90 /min 118 mm[Hg] 80 mm[Hg] Denise Oquendo [facility] 1 08:10:39 Date Recorded Body height Body mass index (BMI) Body weight Body temperature Heart rate Respiratory rate Oxygen saturation Oxygen saturation in Arterial blood by Pulse oximetry Pain severity - 0-10 verbal numeric rating [Score] - Reported Systolic blood pressure Diastolic blood pressure Provider Name and Address Organization Details Last Updated DateTime 2 185.42 cm 32.7 kg/m2 505858. 61 g 98 [degF] 93 /min 14 /min 98 % 98 % 1 126 mm[Hg] 74 mm[Hg] Amy Breaux [facility] 2 08:11:21 Date Recorded Body height Body mass index (BMI) Body weight Pain severity - 0-10 verbal numeric rating [Score] - Reported Respiratory rate Body temperature Heart rate Oxygen saturation Oxygen saturation in Arterial blood by Pulse oximetry Systolic blood pressure Diastolic blood pressure Provider Name and Address Organization Details Last Updated DateTime 3 185.42 cm 30.5 kg/m2 948261. 54 g 2 14 /min 97.1 [degF] 102 /min 98 % 98 % 126 mm[Hg] 80 mm[Hg] Amy Breaux [facility] 3 09:01:02 Date Recorded Body height Body mass index (BMI) Body weight Heart rate Respiratory rate Oxygen saturation Oxygen saturation in Arterial blood by Pulse oximetry Pain severity - 0-10 verbal numeric rating [Score] - Reported Body temperature Systolic blood pressure Diastolic blood pressure Provider Name and Address Organization Details Last Updated DateTime 3 185.42 cm 30.9 kg/m2 399731. 41 g 89 /min 14 /min 98 % 98 % 3 97.6 [degF] 124 mm[Hg] 78 mm[Hg] Amy Breaux [facility] 3 09:38:09 Date Recorded Body height Respiratory rate Body mass index (BMI) Body weight Body temperature Pain severity - 0-10 verbal numeric rating [Score] - Reported Heart rate Oxygen saturation Oxygen saturation in Arterial blood by Pulse oximetry Systolic blood pressure Diastolic blood pressure Provider Name and Address Organization Details Last Updated DateTime 3 185.42 cm 14 /min 31.2 kg/m2 468674. 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 [id number] Information not available 06/09/2023 Do You Use [...] Heart Arrhythmia N Deep Vein Thrombophlebitis N Hypothyroidism N Depression N High Cholesterol (Hyperlipidemia) Y Anemia N [...] quadrivalent, PF 2 completed West Alfonso MD [address] [place] [address], [phone] 06/05/2022 14:13:10 COVID-19, mRNA, LNP-S, PF, 100 mcg/0.5mL dose or 50 mcg/0.25mL dose 1 completed Amy Breaux [facility] 06/05/2022 08:12:35 Influenza, split virus, quadrivalent, preservative 1 completed Denise Oquendo [facility] 06/01/2021 08:09:27 COVID-19, mRNA, LNP-S, PF, 100 mcg/0.5mL dose or 50 mcg/0.25mL dose 2 completed Amy mcknight [facility] 06/05/2022 08:12:35 COVID-19, mRNA, LNP-S, PF, 100 mcg/0.5mL dose or 50 mcg/0.25mL dose 1 completed Amy mcknight [facility] 06/05/2022 08:12:35 Influenza, MDCK, quadrivalent, PF 9 completed Amy mcknight [facility] 06/05/2022 08:12:35 Influenza, recombinant, quadrivalent, PF 0 completed Amy mcknight [facility] 06/05/2022 08:12:35 Tdap 0 completed Amy mcknight [facility] 06/05/2022 08:12:35 COVID-19, mRNA, LNP-S, PF, 100 mcg/0.5mL dose or 50 mcg/0.25mL dose 1 completed Amy mcknight [facility] 06/05/2022 08:12:35 COVID-19, mRNA, LNP-S, bivalent, PF, 50 mcg/0.5 mL or 25mcg/0.25 mL dose 2 completed Amy mcknight [facility] 04/04/2023 09:36:26 zoster recombinant 3 completed Amy Namitaken mcknight [facility] 04/04/2023 09:36:25 Influenza, MDCK, quadrivalent, PF 3 completed Amy mcknight [facility] 06/09/2023 08:21:06 COVID-19, mRNA, LNP-S, PF, 50 mcg/0.5 mL 3 completed Amy Namitaken mcknight [facility] 06/09/2023 08:21:06 Past Encounters Encounter ID Performer Location Encounter Start Date Encounter Closed Date Diagnosis/Indication Diagnosis SNOMED-CT Code Diagnosis ICD10 Code Diagnosis Note [id number] West Alfonso MD [facility] [address] [facility] [place] [address] 12/18/2017 08:02:16 12/18/2017 08:54:26 Adult health examination 142606318 Z00.00 Continue exercise, weight loss. Discussed marijuana for stress, doubt very beneficial . Counsellin g if desired. Sleep apnea 24666963 G47 .30 Hyperlipid emia screening 214260665 Z13.220 Varicose v eins of lower extremity 17568429 I83.93 compressio n stockings prn Inflamed s eborrheic keratosis 920808192 L82.0 N2 cryo x 2 lesions Impacted cerumen 0275817 6 H61.21 irrigated with success [id number] West Alfonso MD [address] [address] 05/11/2018 12:47:49 05/11/2018 13:50:52 Epidermoid cyst 463323839 L72.0 I+D as above, suture removal in 10-14 days [id number] West Alfonso MD [address] [address] 05/25/2018 08:00:50 05/25/2018 08:28:34 Removal of suture 94567518 Z48.02 sutures out x 2, tolerated well Primary er ectile dysfunction 586491163 N52.9 Exercise, get sleep study, healthy diet. Labs reviewed, all OK except somewhat high cholestero l [id number] MD JAH Paz[address] [address] 05/26/2019 07:59:59 05/26/2019 08:41:56 Administration of influenza vaccine 92835498 Z23 Adult [facility] th examination 813456719 Z00.00 Continue exercise, weight loss. Sleep apnea 83847051 G47 .30 possible ALOK, recommend sleep study Hyperlipid emia screening 998736229 Z13.599 [id number] MD Janusz Paz [address] [address] 05/31/2020 08:03:21 05/31/2020 08:44:20 Adult health examination 277791565 Z00.00 Continue exercise, weight loss. Sleep apnea 64320736 G47 .30 possible ALOK, recommend sleep study Hyperlipidemia 25356323 E78.5 be careful about alcohol in light of atorvastat in Family his tory of malignant neoplasm of prostate 586539203 Z80.42 Active or passive immunization 437978602 Z23 Primary er ectile dysfunction 654594414 N52.9 [id number] West Alfonso MD [address] [address] 06/01/2021 08:03:31 06/01/2021 08:35:22 Adult health examination 028787163 Z00.00 Hyperlipidemia 46591553 E78.5 Family his tory of malignant neoplasm of prostate 252418542 Z80.42 Primary er ectile dysfunction 598691050 N52.9 Screening for malignant neoplasm of colon 795801395 Z12.11 due for repeat colonoscop y, had tubular adenoma 2015 Deviated nasal septum 12 1242953 J34.2 Obesity 887338420 E66.9 [id number] West Alfonso MD [address] [address] 06/05/2022 07:53:11 06/05/2022 08:37:21 Body mass index 30+ - obesity 949589575 Z68.32 Adult heal th examination 665432676 Z00.00 Hyperlipidemia 12457781 E78.5 Family his tory of malignant neoplasm of prostate 909628432 Z80.42 Primary er ectile dysfunction 512076595 N52.9 Administra tion of influenza vaccine 37876940 Z23 Family his tory of coronary arteriosclerosis 958896193 Z82.49 left prior to getting EKG Impaired f asting glycemia 467342516 R73.01 Osteoarthr itis of knee 695430858 M17.9 not ready for TKA, will consider steroid injection; tylenol prn [id number] West Alfonso MD [address] [address] 03/13/2023 08:42:21 03/13/2023 10:42:57 Body mass index 30+ - obesity 278147269 Z68.30 good job losing weight Osteoarthr itis of knee 745850108 M17.9 considerin g TKA; continue tylenol prn [id number] West Alfonso MD [facility] [address] [place] [address] 04/04/2023 09:08:09 04/04/2023 13:26:30 Body mass index 30+ - obesity 630960377 Z68.30 Osteoarthr itis of knee 961077560 M17.11 injected today [id number] West Alfonso MD [facility] [address] [place] [address] 06/09/2023 07:54:53 06/09/2023 09:05:26 Body mass index 30+ - obesity 857120091 Z68.31 Adult heal th examination 554125713 Z00.00 Hyperlipidemia 82913166 E78.5 Family his tory of malignant neoplasm of prostate 948331551 Z80.42 Primary er ectile dysfunction 578838116 N52.9 Impaired f asting glycemia 873814392 R73.01 Osteoarthr itis of knee 996752090 M17.9 had meniscal repair 05/23/23, doing well Decreased hearing 261230 001 H91.93 Atypical chest pain 1025 83260 R07.89 Health Concerns Section Related Observation LastModified by Organization Detai ls LastModified Time None Recorded Concern Status LastModified by Organization Details LastModified Time None Recorded Advance Directives Directive N: Payers Encounter Date Sequence Insurance Name Policy Number Policy Diaz Covered Member ID Diaz Member ID Guarantor Name 06/01/2021 1 [facility] [id number] Waldo Villagomez [id number] Waldo Villagomez 06/05/2022 1 [place] [id number] M Waldo Villagomez [id number] Waldo Villagomez 03/13/2023 1 [place] [id number] M Waldo Villagomez [id number] Waldo Villagomez 04/04/2023 1 [place] [id number] M Waldo Villagomez [id number] Waldo Villagomez 06/09/2023 1 [place] [id number] M Waldo Villagomez [id number] Waldo Villagomez Notes Date Note Type [...] in past year.Colonoscopy 2014. West Alfonso MD [address] [place], [address], [facility] 06/01/2021 18:06:32 06/05/2022 text/html Here for CPE.Colonoscopy 11/2021 - 5mm tubular adenoma, repeat in 5y.More active at gym, but right knee has been bothersome. Had MRI and steroid injection about 5y ago. 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 Father had HF but lived to . West Alfonso MD [address] [place], [address], [facility] 06/05/2022 14:26:50 03/13/2023 text/html Right knee pain starting 8 years ago, recovered after steroid shot, saw orthopedics and had MRI which showed severe OA.Now recurrent x 6-8 weeks, no injury. Walks often at work, hikes at times but downhill is very painful.Had lost weight down to 220, regained some in past few months when unable to exercise. Daughter is a certified personal finance counselor, he has been trying to strengthen knee. West Alfonso MD [address] [place], [address], [facility] 03/13/2023 13:44:48 04/04/2023 text/html Right knee pain continues, requesting steroid shot for relief of pain. Will see orthopedist in [place] next month, after getting MRI. Hard to work out at gym, no longer playing basketball. Painful at night, interferes with sleep. Taking tylenol and advil.Going to [place] next week. West Alfonso MD [address] [place], [address], [facility]. 04/04/2023 13:00:17 06/09/2023 text/html Here for CPE.Had right knee meniscal surgery 05/23/23, no note, doing well, has had followup.12 lb weight loss overall since last year.Colonoscopy 11/2021 - 5mm tubular adenoma, repeat in 5y.c/o hearing loss lately.c/o occasional substernal chest pains, not exertional. Father had CAD and HF, lived to age 96.Had flu/COVID and shingles shots. West Alfonso MD [address] [place], [address], [facility]. 06/09/2023 13:26:25
--- NOTE | 2024-09-27 12:24 | P.CONAN_ITS ---
Documented by User: Allison Walker NP 10/13/24 14:12 HPI - Anesthesia Eval Consult details Narrative: 64yo M for Left Hydrocele Repair [facility] Active Problems Active Problems: All Active Problems Bilateral hydrocele (Acute) Testicular pain (Acute) Scrotal swelling (Acute) Past Medical History Medical History (Updated 09/28/24 @ 11:51 by Eva Grayson RN) Elevated cholesterol Surgical History Surgical History (Updated 09/28/24 @ 11:51 by Eva Grayson RN) Hx of knee surgery Hx of wisdom tooth extraction Hx of colonoscopy Social History Social History Patient Tobacco Use Status: Never used Tobacco Meds Allergies Allergy/AdvReac Type Severity Reaction Status Date / Time No Known Allergies Allergy Verified 09/16/24 08:53 Home Medications ?Medication ?Instructions ?Recorded ?Confirmed ?Last Taken ?Type atorvastatin 20 mg tablet 20 mg PO DAILY 07/08/24 09/28/24 09/27/24 History Assessment and Plan Assessment Anesthesia Assessment: Chart Reviewed Documented by User: Enio Husain MD 10/14/24 12:27 [facility] Past Medical History Medical History (Updated 09/28/24 @ 11:51 by Eva Grayson RN) Elevated cholesterol Family History Family history of problems with anesthesia: No Surgical History Surgical History (Updated 09/28/24 @ 11:51 by Eva Grayson RN) Hx of knee surgery Hx of wisdom tooth extraction Hx of colonoscopy History of Problems with Anesthesia: No Social History Social History Patient Tobacco Use Status: Never used Tobacco Meds Allergies Allergy/AdvReac Type Severity Reaction Status Date / Time No Known Allergies Allergy Verified 09/16/24 08:53 Home Medications ?Medication ?Instructions ?Recorded ?Confirmed ?Last Taken ?Type atorvastatin 20 mg tablet 20 mg PO DAILY 07/08/24 09/28/2409/27/25 History Exam Airway Mallampati Class: II TM Dist: >3cm Neck ROM: Full Assessment and Plan Assessment Anesthesia Assessment: Anesthesia Plan Discussed Final Anesthetic Review Family History of Problems with Anesthesia: No History of Problems with Anesthesia: No NPO: Yes ASA Class: II Final Preanesthetic Review: No Changes in Pt Med Stat, Meds/Allgs Chart Reviewed, Consent Obtained/Reviewed and Anes Risks/Benef Reviewed Patient Risk: Low Procedure Risk: Low Anesthetic Plan Anesthetic Plan: GA Disposition: Standard PACU
[2024-09-28] VITALS (8 sets, daily range): BP systolic 112–145; BP diastolic 79–97; PULSE 69–93; RESP 16–18; TEMP 36.1–36.2; O2SAT 94–96; BMI 30.2
--- NOTE | 2024-09-28 11:48 | W.PM.OPN ---
Operative Note Operative Note Date of Service: 09/28/24 Narrative: PreOperative Diagnosis:? ? Left hydrocele Post Operative Diagnosis: Left testicular cyst Procedure: Left testicular cyst excision. Surgeon:?Dr Jose Stevenson Anesthesia:? General Procedure: After informed consent was verified the patient was brought to the operating room and placed in a supine position.? Anesthesia was performed per protocol. The patient was prepped and draped in the usual sterile fashion. Safety pause time-out was performed. Antibiotics confirmed. A marker was used to winston the median raphe. Attention was taken to the left hemiscrotum A horizontal incision was made through the skin with a 15 blade knife, cautery was used to incise the dartos fascia, the plane between the dartos fascia and the gubernaclar attachments are taken down with electrocautery. The cyst was opened, about 400 mL fluid drained and suctioned. . A portion of the cyst wall was sent to pathology, the tunica edges were oversewn with 3-0 chromic. Cautery was used for hemostasis. The dartos fascia was closed with running locking 3-0 chromic and the skin was closed with interrupted 3-0 chromic there was good hemostasis noted. The patient tolerated the procedure well and was transferred to the recovery area upon completion. Complications: None EBL: minimal (<5 mL) Drains: None
--- NOTE | 2024-09-28 11:48 | MHC.SHP ---
Pre-Procedural Eval Section A - 24 Hr Update-Section A only Date of Service: 09/28/24 The patient is an INPATIENT: No The patient has been examined within 24 hours of the surgical procedure. The History & Physical has been completed within 30 days and I have reviewed it.: Yes Section B - Complete if H&P > 30 days Chief Complaint: Left Hydrocele, unspecified Allergies: Allergies Allergy/AdvReac Type Severity Reaction Status Date / Time No Known Allergies Allergy Verified 09/16/24 08:53 Plan Diagnosis/Plan: Unchanged I have reviewed the history and physical and performed a pertinent physical examination on my patient. No changes have occurred unless specified. Left hydrocelectomy. Discussed risk to include but not limited to infection, bleeding, pain. Time Spent With Patient Time: Total time managing care of this patient today ____ minutes.
[2024-09-28] MEDS: Lactated Ringers 1,000 ML 100 ML IVCONT (11:59)
[2024-09-28] MEDS: ceFAZolin Sodium/Dextrose,Iso 2 GM/50 ML PIGGYBACK IV (12:30)
[2024-09-28] MEDS: Acetaminophen 1,000 MG/100 ML PIGGYBACK 400 MG IV (13:51)
[2024-09-28] MEDS: oxyCODONE HCl Immed Release 5 MG TABLET PO (14:20)
== END 2024-09-28 14:55 | disposition home or self-care (01) ==
PROVIDERS: PCP Family Medicine; Visit Provider Urology
PROC: (CPT 55060; principal; 2024-09-28 13:00)
DX: N43.3 Hydrocele, unspecified (principal); N43.40 Spermatocele of epididymis, unspecified; N44.2 Benign cyst of testis
CPT/HCPCS: 54512; 55000; 88112; 88302; 88304; 88305; J0131; J0690; J1100; J1171; J2003; J2405; J2704; J2795

== ENCOUNTER → 2024-09-28 14:55 | Outpatient (BNV) | payer BC, SELFPAY | PROVIDERS: PCP Family Medicine; Visit Provider Urology | DX: N43.3 Hydrocele, unspecified (principal) | CPT/HCPCS: 55040 ==

== ENCOUNTER 2024-11-19 15:18 | Outpatient (AMB) | payer BC, SELFPAY ==
--- OUTSIDE RECORDS SUMMARY | 2024-11-19 15:20 | XMS_ITS | Data Portability ---
Author Organization [facility], [facility] Address [address] [place] [address] Care Team Providers Care Applications Packager Name Role Phone [place] Primary Care Provider [phone] Assessment No assessment recorded. Plan of Treatment Reminders Order Date Submit Date Provider Last Modified By Organization Details Last Modified Time Details Appointments None record ed. Lab None record ed. Referral None record ed. Procedures None record ed. Surgeries None record ed. Imaging None record ed. Medication Orders None record ed. Patient TargetsNo targets recorded. Patient InstructionsNo instructions recorded. Reason for Referral None Reported. Procedures Surgical History Date Name Laterality Status Provider Name and Address Organization Details Recorded Time Trigger Finger Kenalog Injection completed Eliseo David MD [address], [place], [address], [facility] 10/27/2024 10:38:38 Imaging Results None recorded. Procedure Notes None recorded. Medical Equipment None Reported. Allergies No known drug allergies Medications Name Sig Start Date Stop Date Status Note LastModified by Organization Details LastModified Time atorvastatin 20 mg tablet TAKE 1 TABLET BY MOUTH EVERY DAY active Not Available Not Available No t Available sildenafil 50 mg tablet TAKE 1 TABLET BY MOUTH EVERY DAY active Not Available Not Available No t Available ciclopirox 8 % topical solution APPLY TO THE AFFECTED AREA(S) TOPICALLY ONCE DAILY PREFERABLY AT BEDTIME OR 8 HOURS BEFORE WASHING active Not Available Not Available No t Available oxycodone-ac etaminophen 5 mg-325 mg tablet TAKE 1 TABLET BY MOUTH EVERY 6 TO 8 HOURS NEEDED FOR PAIN active Not Available Not Available No t Available amoxicillin 875 mg tablet TAKE 1 TABLET BY MOUTH 2 TIMES A DAY UNTIL FINISHED-ST ARTING 1 DAY PRIOR TO SURGERY active Not Available Not Available N ot Available ibuprofen 600 mg tablet TAKE 1 TABLET 4 TIMES DAILY TAKEN WITH TYLENOL. START 1 DAY BEFORE SURSGERY active Not Available Not Available No t Available chlorhexidin e gluconate 0.12 % mouthwash RINSE WITH 15ML TWICE A DAY AFTER BREAKFAST AND BEFORE BEDTIME active Not Available Not Available No t Available oxycodone HCl-oxycodon e-ASA as directed 1-2 TABLETS EVERY [address] WHILE TAKING THIS MEDICATION 2022 active Statu s: 'Curr ent'; Not Available Not Available Not Available Vitals Date Recorded Body height Body mass index (BMI) Body weight Provider Name and Address Organization Details Last Updated DateTime 10/27/2024 187.96 cm 29.5 kg/m2 629096.25 g AMPARO ZUÑIGA [place] - [facility] 10/27/2024 08:59:17 Social History None recorded. Functional Status None recorded. Mental Status None recorded. Family History Nothing Reported. Medical History No medical history recorded. Past Encounters Encounter ID Performer Location Encounter Start Date Encounter Closed Date Diagnosis/Indication Diagnosis SNOMED-CT Code Diagnosis ICD10 Code Diagnosis Note [id number] MD [facility] [place] [address] [place] [address] 10/27/2024 08:46:15 11/09/2024 10:18:11 Flexor tenosynovitis of finger 019251330 M65.949 Health Concerns Section Related Observation LastModified by Organization Detai ls LastModified Time None Recorded Concern Status LastModified by Organization Details LastModified Time None Recorded Advance Directives Directive None Recorded Payers Encounter Date Sequence Insurance Name Policy Number Policy Diaz Covered Member ID Diaz Member ID Guarantor Name 10/27/2024 1 [place]PO[place] [id number] Waldo Villagomez [id number] Waldo Villagomez Notes Date Note Type Note Provider Name and Address Organization Details Recorded Time 10/27/2024 text/html Diagnosis: Flexo r tenosynovitis left index finger 64-year-old male with a 2-month history of triggering of his left index finger. This develop without history of trauma or other inciting event. It is associated with a mild sharp pain. He describes no numbness or tingling. Past family, medical, social history and review of systems has been reviewed, updated and is located in the patient? s chart. Examination: Healthy appearing patient in no apparent distress. Alert and oriented. He has symmetric range of motion of his bilateral wrist and digits. He has triggering of the left index finger with a tender nodule at the A1 snow. Provocative testing of wrist and digits reveal no instability. No atrophy in either upper extremity. Brisk capillary refill in all digits Plan:I described for the patient the nature of flexor tenosynovitis and his options. The patient has opted for a corticosteroid injection into the flexor tendon sheath. The patient tolerated this well. The patient will follow-up with me by phone in a month's time or sooner if there are any concerns. Eliseo David MD [address] [place] [address] [address], [place], [address], [facility] - [facility] 10/27/2024 10:39:11
--- NOTE | 2024-11-19 15:23 | A.OFFVIS_ITS ---
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: Hydrocele Repair follow up Intake Note: Patient is present for a follow up/hydrocele repair Urology Medications: None Antibiotic Allergy: None Blood Thinner: None [employer] Assistant Required: No Accompanied by: Self / Same As Patient Allergies No Known Allergies Allergy (Verified 11/19/24 15:31) Medication List - Last Reconciled 11/19/24 by Jose Stevenson MD No Known Home Meds HPI Comments Details: 11/19/24--Waldo Villagomez is here status post right hydrocele repair on 09/28/2024. History of Present Illness The patient is a 64-year-old male presenting for post-operative evaluation after a right hydrocele repair performed on September 28, 2024. The patient reported initial difficulty during the first week following surgery, but subsequently, he noted that healing has gone well without any significant complications. The procedure's outcome has been satisfactory to the patient, with no current issues or grievances mentioned concerning the repair. During this follow-up, there is an absence of further complaints suggesting problems or complications related to the hydrocele repair. I also reviewed the patient's chart for evidence of previous Prostate-Specific Antigen (PSA) testing, which was not on file, and recommended obtaining a baseline PSA. We discussed that unless abnormal results were found, the patient might not be contacted, and normal results would be monitored yearly. Urinary Symptoms Review - No problems urinating discussed - Absence of urinary symptoms post-procedure Examination: exam of scrotum- incision well healed, no swelling, no signs of infection. 09/15/24--FU Scrotal US--- I explained the diagnosis of hydrocele, emphasizing t he presence of fluid accumulation around both testicles, with the left side being particularly affected. I detailed the available management options, including the aspiration of fluid, which offers a temporary solution, as the fluid is likely to reaccumulate. I advised that a surgical procedure involving the drainage of fluid and excision of the membrane may provide a more permanent solution, as this addresses the underlying cause. We discussed the procedure and subsequent recovery, which typically involves transient swelling and bruising. Discussion for proceeding with surgical intervention on the left side initially, agreeing to re-evaluate the right side if necessary post-recovery. Results- Ultrasound: Large left hydrocele. 1.4 x 0.5 x 1.2 cm left epididymal head cyst. Small to moderate right hydrocele containing septations and debris. 07/08/24--Waldo is a 64 year old male who is here for evaluation, states he has noticed increased size of testicles, mild discomfort after intercourse, denies any bothersome urinary symptoms. Exam notes scrotal swelling, possible hydrocele, will get scrotal US. [facility] Medical History Elevated cholesterol Surgical History Hx of knee surgery Hx of wisdom tooth extraction Hx of colonoscopy Social History Patient Tobacco Use Status: Never used Tobacco Review of Systems Const All systems reviewed & are unremarkable except as noted in HPI and below Reports no additional complaints Eyes Reports no additional complaints ENT Reports no additional complaints Card Reports no additional complaints Resp Reports no additional complaints GI Reports no additional complaints Reports as per HPI Musc Reports no additional complaints Skin/Breast Reports system reviewed and no additional complaints, except as documented Neuro Reports no additional complaints Psych Reports no additional complaints Endo Reports no additional complaints Willy/Lymph Reports no additional complaints Aller/Immun Reports no additional complaints Results Reviewed Results Reviewed: Date of Service: 08/26/24 EXAMINATION: US SCROTUM HISTORY: N50.89 - scrotal swelling. COMPARISONS: There are no prior studies for comparison. FINDINGS: Real-time grayscale ultrasound imaging of the scrotum was performed. RIGHT TESTICLE: The right testis measures 4.8 x 1.8 x 3.4 cm and demonstrates normal homogeneous echotexture. There is a 4 x 7 x 2 mm testicular cyst. No solid mass is identified. The right testis demonstrates normal color Doppler flow. RIGHT EPIDIDYMIS: Normal in size, shape, and vascularity. LEFT TESTICLE: The left testis measures 3.3 x 1.4 x 3.7 cm and demonstrates normal homogeneous echotexture. There is a 1.6 x 0.5 x 0.9 cm testicular cyst. No solid mass is identified. The left testis demonstrates normal color Doppler flow. LEFT EPIDIDYMIS: Normal in size, shape, and vascularity. There is a 1.4 x 0.5 x 1.2 cm epididymal head cyst. VARICOCELE: None. HYDROCELE: There is a small to moderate-sized right hydrocele containing debris and septations. There is a large left hydrocele. OTHER COMMENTS: None. US/US scrotum IMPRESSION: Large left hydrocele. Small to moderate right hydrocele containing septations and debris. 1.4 x 0.5 x 1.2 cm left epididymal head cyst. Assessment & Plan Assessment & Plan (1) Bilateral hydrocele: Comment: Right > than Left, s/p right hydrocele repair 09/28/24 Code(s): N43.3 - Hydrocele, unspecified Category: Medical (2) Screening PSA (prostate specific antigen): Code(s): Z12.5 - Encounter for screening for malignant neoplasm of prostate Category: Medical Plan Doing well post procedure. PSA screening. Orders: Orders PSA,Total (Free>4and<10) Today Z12.5 - Encounter for screening for malignant neoplasm of prostate PSA,Total (Free>4and<10) 11 Months Z12.5 - Encounter for screening for malignant neoplasm of prostate Patient Instructions: The patient had an opportunity to ask questions regarding treatment plan. The patient expressed understanding and agreement with the above treatment plan. The patient is aware they should contact our office by phone for worsening of their current condition or the appearance of new symptoms. Compliance is encouraged with any medications and followup testing that is ordered. It is a privilege to be allowed the opportunity to participate in the urologic care of your patient. If you have any questions or concerns regarding treatment for the above conditions please do not hesitate to contact me. The office telephone contact is [phone]. This note is constructed in part using voice recognition software. While every effort has been made to ensure accuracy communications media professor errors may have been included. Yours sincerely, Jose Stevenson MD Scribe Plan - Not visible on output: Patient was informed and verbally consented to the use of an ambient scribe for clinic note documentation during this visit. Coding Level of Care Code Est Pt Level 3 (58968) Diagnoses Bilateral hydrocele N43.3 Screening PSA (prostate specific antigen) Z12.5
== END 2024-11-19 15:50 | disposition home or self-care (01) ==
LOC: HO.HUSH 15:18
PROVIDERS: PCP Family Medicine; Visit Provider Urology
DX: N43.3 Hydrocele, unspecified (principal); Z12.5 Encounter for screening for malignant neoplasm of prostate; Z13.9 Encounter for screening, unspecified
CPT/HCPCS: 99024

== ENCOUNTER → 2024-11-19 15:18 | Outpatient (BNVA) | payer BC, SELFPAY | PROVIDERS: PCP Family Medicine; Visit Provider Urology | DX: N43.3 Hydrocele, unspecified (principal); Z12.5 Encounter for screening for malignant neoplasm of prostate; Z13.9 Encounter for screening, unspecified | CPT/HCPCS: 81003 ==